=== PATIENT | female | born 1990 | race Hispanic/Latino ===

== ENCOUNTER 2018-10-01 01:02 | Emergency (ER) | payer OTHER, SELFPAY ==
--- NOTE | 2018-10-01 01:34 | ER ---
Nurse's Notes [facility] Name: Juni Healy Age: 28 yrs Sex: Female : 1990 Arrival Date: 10/01/2018 Time: 01:06 Bed 6 Private MD: Diagnosis: Laceration without foreign body of other part of head Presentation: 10/01 01:19 Presenting complaint: Patient states: she hit her head and has a small laceration which bb is not bleeding now pt denies LOC. Transition of care: patient was not received from another setting of care. Mechanism of Injury: resulted from a direct blow, furniture. Onset of symptoms was October 01, 2018. Risk Assessment: Do you want to hurt yourself or someone else? Patient reports no desire to harm self or others. Initial Sepsis Screen: Does the patient meet any 2 criteria? No. Patient's initial sepsis screen is negative. Does the patient have a suspected source of infection? No. Patient's initial sepsis screen is negative. Care prior to arrival: None. 01:19 Method Of Arrival: Ambulatory bb 01:19 Acuity: JANE 4 bb Triage Assessment: 01:21 General: Appears in no apparent distress. Behavior is calm, cooperative. Pain: bb Complains of pain in back of head. Neuro: Level of Consciousness is awake, alert, obeys commands, Oriented to person, place, time, situation. Cardiovascular: No deficits noted. Respiratory: Respiratory effort is even, unlabored, Respiratory pattern is regular. GI: No deficits noted. Derm: Wound noted back of head Wound is laceration. Musculoskeletal: Circulation, motion, and sensation intact. 01:21 Neuro: Reports laceration to scalp. bb CRUSHER: 01:57 LMP N/A - bb Historical: - PMHx: 01:21 Cholecystitis; bb - PSHx: 01:21 ; Cholecystectomy; bb - Immunization history:: Adult Immunizations up to date. - Social history:: Smoking status: unknown. - Ebola Screening: : No symptoms or risks identified at this time. - Family history:: not pertinent. Screenin:30 Abuse screen: Denies threats or abuse. Nutritional screening: No deficits noted. bb Tuberculosis screening: No symptoms or risk factors identified. Fall Risk None identified. Assessment: :30 Reassessment: No changes from previously documented assessment. see triage assessment. bb 01:55 Reassessment: Patient is alert, oriented x 3, equal unlabored respirations, skin bb warm/dry/pink. alli in place wound is well approximated, pt verbalized understanding of and agrees to plan of care discharge instructions given pt ambulated with steady gait to exit accompanied by family. Vital Signs: 01:11 BP 109 / 81; Pulse 125; Resp 24; Temp 98.8; Pulse Ox 96% on R/A; Weight 74.84 kg; ms Height 5 ft. 0 in. (152.40 cm); Pain 6/10; 01:55 BP 109 / 84; Pulse 111; Resp 16; Pulse Ox 98% ; lt1 01:11 Body Mass Index 32.22 (74.84 kg, 152.40 cm) ms [place] Coma Score: 01:19 Eye Response: spontaneous(4). Verbal Response: oriented(5). Motor Response: obeys bb commands(6). Total: 15. 01:27 Eye Response: spontaneous(4). Verbal Response: oriented(5). Motor Response: obeys ayesha commands(6). Total: 15. ED Course: 01:06 Patient arrived in ED. es 01:18 Isabella Galarza, RN is Primary Nurse. bb 01:21 Triage completed. bb 01:23 Lasha Lemos MD is Attending Physician. ayesha 01:30 Patient has correct armband on for positive identification. Call light in reach. bb 01:30 Patient did not have IV access during this emergency room visit. Wound care: located on bb right side of the back of head was cleaned with Betadine. 01:40 Patient notified of wait time. bb 01:40 Assist provider with laceration repair on right side of the back of head that was 2.5 bb cm. or less using alli. Set up tray. Performed by Lasha Lemos MD Patient tolerated well. Administered Medications: 01:49 Drug: Tetanus-Diphtheria Toxoid Adult 0.5 ml {Casino Supervisor: [employer]. Exp: bb 10/08/2020. Lot #: [id number]. } Route: IM; Site: right deltoid; 01:54 Follow up: Response: No adverse reaction bb Outcome: 01:33 Discharge ordered by . ayesha 01:56 Discharged to home ambulatory, with family. bb 01:56 Condition: stable 01:56 Discharge instructions given to patient, Instructed on discharge instructions, follow up and referral plans. wound care, Demonstrated understanding of instructions, follow-up care, wound care. 01:59 Patient left the ED. bb Signatures: Lasha Lemos MD MD cha Salyer, Edna es Ballard, Brenda, CLINT RN Lashell Davila ms Sondra Knight lt1 Corrections: (The following items were deleted from the chart) 01:55 01:54 BP 109 / 84; Pulse 111bpm; Resp 16bpm; Pulse Ox 98%; bb josi 01:59 01:30 No provider procedures requiring assistance completed. josi prater
--- NOTE | 2018-10-01 01:35 | EDPHYS ---
Physician Documentation [facility] Name: Juni Healy Age: 28 yrs Sex: Female : 1990 Arrival Date: 10/01/2018 Time: 01:06 Bed 6 Private MD: ED Physician Lasha Lemos HPI: 10/01 01:27 This 28 yrs old Female presents to ER via Ambulatory with complaints of Head ayesha Injury-Adult. 01:27 The patient or guardian reports a laceration, 2.5 cm(s), clean. The complaints affect ayesha the right side of the back of head. Context of injury: The problem was sustained at home. Onset: The symptoms/episode began/occurred just prior to arrival. Associated signs and symptoms: The patient has no apparent associated signs or symptoms. Severity of symptoms: At their worst the symptoms were mild, in the emergency department the symptoms are unchanged. The patient has not experienced similar symptoms in the past. 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 - Social history:: Smoking status: unknown. - Ebola Screening: : No symptoms or risks identified at this time. - Family history:: not pertinent. ROS: 01:27 Constitutional: Negative for fever, chills, and weight loss, Eyes: Negative for injury, ayesha pain, redness, and discharge, ENT: Negative for injury, pain, and discharge, Neck: Negative for injury, pain, and swelling, Cardiovascular: Negative for chest pain, palpitations, and edema, Respiratory: Negative for shortness of breath, cough, wheezing, and pleuritic chest pain, Abdomen/GI: Negative for abdominal pain, nausea, vomiting, diarrhea, and constipation, Back: Negative for injury and pain, : Negative for injury, bleeding, discharge, and swelling, MS/Extremity: Negative for injury and deformity, Neuro: Negative for headache, weakness, numbness, tingling, and seizure, Psych: Negative for depression, anxiety, suicide ideation, homicidal ideation, and hallucinations, Allergy/Immunology: Negative for hives, rash, and allergies, Endocrine: Negative for neck swelling, polydipsia, polyuria, polyphagia, and marked weight changes, Hematologic/Lymphatic: Negative for swollen nodes, abnormal bleeding, and unusual bruising. 01:27 Skin: Positive for laceration(s). Exam: 01:27 Constitutional: This is a well developed, well nourished patient who is awake, alert, ayesha and in no acute distress. Head/Face: Normocephalic, atraumatic. Eyes: Pupils equal round and reactive to light, extra-ocular motions intact. Lids and lashes normal. Conjunctiva and sclera are non-icteric and not injected. Cornea within normal limits. Periorbital areas with no swelling, redness, or edema. ENT: Nares patent. No nasal discharge, no septal abnormalities noted. Tympanic membranes are normal and external auditory canals are clear. Oropharynx with no redness, swelling, or masses, exudates, or evidence of obstruction, uvula midline. Mucous membranes moist. Neck: Trachea midline, no thyromegaly or masses palpated, and no cervical lymphadenopathy. Supple, full range of motion without nuchal rigidity, or vertebral point tenderness. No Meningismus. Chest/axilla: Normal chest wall appearance and motion. Nontender with no deformity. No lesions are appreciated. Cardiovascular: Regular rate and rhythm with a normal S1 and S2. No gallops, murmurs, or rubs. Normal PMI, no JVD. No pulse deficits. Respiratory: Lungs have equal breath sounds bilaterally, clear to auscultation and percussion. No rales, rhonchi or wheezes noted. No increased work of breathing, no retractions or nasal flaring. Abdomen/GI: Soft, non-tender, with normal bowel sounds. No distension or tympany. No guarding or rebound. No evidence of tenderness throughout. Back: No spinal tenderness. No costovertebral tenderness. Full range of motion. MS/ Extremity: Pulses equal, no cyanosis. Neurovascular intact. Full, normal range of motion. Neuro: Awake and alert, GCS 15, oriented to person, place, time, and situation. Cranial nerves II-XII grossly intact. Motor strength 5/5 in all extremities. Sensory grossly intact. Cerebellar exam normal. Normal gait. Psych: Awake, alert, with orientation to person, place and time. Behavior, mood, and affect are within normal limits. 01:27 Skin: injury, laceration(s), the wound is approximately 2.5 cm(s), with a depth of .25 cm(s), of the right side of the back of head. Vital Signs: 01:11 BP 109 / 81; Pulse 125; Resp 24; Temp 98.8; Pulse Ox 96% on R/A; Weight 74.84 kg; ms Height 5 ft. 0 in. (152.40 cm); Pain 6/10; 01:55 BP 109 / 84; Pulse 111; Resp 16; Pulse Ox 98% ; lt1 01:11 Body Mass Index 32.22 (74.84 kg, 152.40 cm) ms Jose Coma Score: 01:19 Eye Response: spontaneous(4). Verbal Response: oriented(5). Motor Response: obeys commands(6). Total: 15. 01:27 Eye Response: spontaneous(4). Verbal Response: oriented(5). Motor Response: obeys ayesha commands(6). Total: 15. Laceration: 01:27 Wound Repair of 2.5cm ( 1.0in ) subcutaneous laceration to right side of the back of [facility] head. Linear shaped.. Distal neuro/vascular/tendon intact. Anesthesia: none with 0 mls of none. Wound prep: Simple cleansing by me. Skin closed with 3 3 jett [place] using staple gun. Dressed with none. Patient tolerated well. MDM: 01:24 Patient medically screened. [facility] 01:32 Data reviewed: vital signs, nurses notes. [facility] 10/01 01:26 Order name: Wound Care; Complete Time: 01:49 [facility] Administered Medications: 01:49 Drug: Tetanus-Diphtheria Toxoid Adult 0.5 ml {Credit Control Administrator: [employer]. Exp: bb 10/08/2020. Lot #: [id number]. } Route: IM; Site: right deltoid; 01:54 Follow up: Response: No adverse reaction josi Disposition: 10/01/18 01:33 Discharged to Home. Impression: Laceration without foreign body of other part of head. - Condition is Stable. - Discharge Instructions: Laceration Care, Adult, Stitches, Jett, or Adhesive Wound Closure, Laceration Care, Adult, [id number], Stitches, Jett, or Adhesive Wound Closure, [id number]. - Medication Reconciliation Form, Thank You Letter, Antibiotic Education, Prescription Opioid Use, Work release form form. - Follow up: Private Physician; When: 2 - 3 days; Reason: Recheck today's complaints, Continuance of care, Re-evaluation by your physician. - Problem is new. - Symptoms have improved. Signatures: Lasha Lemos MD MD cha Ballard, Brenda RN RN bb Corrections: (The following items were deleted from the chart) 01:59 01:33 10/01/2018 01:33 Discharged to Home. Impression: Laceration without foreign body bb of other part of head. Condition is Stable. Forms are Medication Reconciliation Form, Thank You Letter, Antibiotic Education, Prescription Opioid Use. Follow up: Private Physician; When: 2 - 3 days; Reason: Recheck today's complaints, Continuance of care, Re-evaluation by your physician. Problem is new. Symptoms have improved. ayesha
[2018-10-01] MEDS ORDERED: TETANUS & DIPHTHERIA TOX,ADULT 0.5 ML VIAL ONE (01:54)
[2018-10-01 02:27] VITALS: TEMP 98.8
[2018-10-01 02:28] VITALS: BP 109/84; O2SAT 98
== END 2018-10-01 01:59 | disposition home or self-care (01) ==
LOC: ER 01:02
PROC: 0JQ00ZZ Repair Scalp Subcutaneous Tissue and Fascia, Open Approach (ICD-10-PCS; principal; 2018-10-01)
DX: S01.91XA Laceration without foreign body of unspecified part of head, initial encounter (principal); W19.XXXA Unspecified fall, initial encounter; Y93.9 Activity, unspecified; Y92.009 Unspecified place in unspecified non-institutional (private) residence as the place of occurrence of the external cause; Z23 Encounter for immunization
CPT/HCPCS: 90714; 99283

== ENCOUNTER 2018-10-13 22:11 | Emergency (ER) | payer SELFPAY ==
--- NOTE | 2018-10-13 22:34 | ER ---
Nurse's Notes [facility] Name: Juni Healy Age: 28 yrs Sex: Female : 1990 Arrival Date: 10/13/2018 Time: 22:16 Bed Waiting Private MD: Ron Prescott E Diagnosis: Encounter for removal of sutures Presentation: 10/13 22:25 Presenting complaint: Patient states: she is here to have alli removed from her bb scalp which were placed here last Wednesday. Transition of care: patient was not received from another setting of care. Onset of symptoms was October 13, 2018. Risk Assessment: Do you want to hurt yourself or someone else? Patient reports no desire to harm self or others. Initial Sepsis Screen: Does the patient meet any 2 criteria? No. Patient's initial sepsis screen is negative. Does the patient have a suspected source of infection? No. Patient's initial sepsis screen is negative. Care prior to arrival: None. 22:25 Method Of Arrival: Ambulatory bb 22:25 Acuity: JANE 5 bb Triage Assessment: 22:26 General: Appears in no apparent distress. Behavior is calm, cooperative. Pain: Denies bb pain. Neuro: Level of Consciousness is awake, alert, obeys commands, Oriented to person, place, time, situation. Cardiovascular: No deficits noted. Respiratory: Respiratory effort is even, unlabored. Derm: alli to scalp intact wound is well approximated, well healed. Musculoskeletal: Circulation, motion, and sensation intact. 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 - Social history:: Smoking status: Patient/guardian denies using tobacco. - Ebola Screening: : No symptoms or risks identified at this time. Screenin:32 Abuse screen: Denies threats or abuse. Nutritional screening: No deficits noted. bb Tuberculosis screening: No symptoms or risk factors identified. Fall Risk None identified. Assessment: 22:32 Reassessment: Arturo Mcneil INSTRUMENT PANEL ASSEMBLER in triage for pt evaluation alli removed by this RN pt bb tolerated well. Vital Signs: 22:26 BP 107 / 77; Pulse 88; Resp 16 S; Temp 98.1(O); Pulse Ox 97% on R/A; Weight 79.83 kg bb (R); Height 5 ft. 5 in. (165.10 cm) (R); Pain 0/10; 22:26 Body Mass Index 29.29 (79.83 kg, 165.10 cm) bb ED Course: 22:16 Patient arrived in ED. am2 22:16 Clifford Santos MD is Private Physician. am2 22:16 Ron Prescott MD is Private Physician. am2 22:26 Triage completed. bb 22:26 Arm band placed on. bb 22:30 Ovidio Mcneil NP is PHCP. pm1 22:30 Lasha Lemos MD is Attending Physician. pm1 22:32 Patient has correct armband on for positive identification. bb 22:32 No provider procedures requiring assistance completed. Patient did not have IV access bb during this emergency room visit. Administered Medications: No medications were administered Outcome: 22:33 Discharge ordered by . pm1 22:36 Discharged to home ambulatory. bb 22:36 Condition: stable 22:36 Discharge instructions given to patient, Instructed on discharge instructions, follow up and referral plans. Demonstrated understanding of instructions, follow-up care. 22:36 Patient left the ED. bb Signatures: Isabella Galarza RN RN bb Ovidio Mcneil NP INSTRUMENT PANEL ASSEMBLER pm1 Stacy [place] am2
--- NOTE | 2018-10-13 22:34 | EDPHYS ---
Physician Documentation [facility] Name: Juni Healy Age: 28 yrs Sex: Female : 1990 Arrival Date: 10/13/2018 Time: 22:16 Bed Waiting Private MD: Ron Prescott E ED Physician Lasha Lemos HPI: 10/13 22:30 This 28 yrs old Female presents to ER via Ambulatory with complaints of Staple pm1 Removal. 22:30 The patient has alli on the scalp. Previous treatment: The patient was initially pm1 treated on October 01, 2018, the care was rendered at [facility], Treatment type: The patient's original treatment included alli. Sutures/alli progress: The patient has no c/o's. The wound is well-healing with no redness, swelling, discharge, or dehiscence reported. The patient has not experienced similar symptoms in the past. 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 - Social history:: Smoking status: Patient/guardian denies using tobacco. - Ebola Screening: : No symptoms or risks identified at this time. ROS: 22:30 Constitutional: Negative for fever, chills, and weight loss, Eyes: Negative for injury, pm1 pain, redness, and discharge, ENT: Negative for injury, pain, and discharge, Neck: Negative for injury, pain, and swelling, Cardiovascular: Negative for chest pain, palpitations, and edema, Respiratory: Negative for shortness of breath, cough, wheezing, and pleuritic chest pain, Abdomen/GI: Negative for abdominal pain, nausea, vomiting, diarrhea, and constipation, Back: Negative for injury and pain, MS/Extremity: Negative for injury and deformity, Skin: Negative for injury, rash, and discoloration, Neuro: Negative for headache, weakness, numbness, tingling, and seizure. Exam: 22:30 Constitutional: This is a well developed, well nourished patient who is awake, alert, pm1 and in no acute distress. Head/Face: Normocephalic, atraumatic. Eyes: Pupils equal round and reactive to light, extra-ocular motions intact. Lids and lashes normal. Conjunctiva and sclera are non-icteric and not injected. Cornea within normal limits. Periorbital areas with no swelling, redness, or edema. ENT: Nares patent. No nasal discharge, no septal abnormalities noted. Tympanic membranes are normal and external auditory canals are clear. Oropharynx with no redness, swelling, or masses, exudates, or evidence of obstruction, uvula midline. Mucous membranes moist. Neck: Trachea midline, no thyromegaly or masses palpated, and no cervical lymphadenopathy. Supple, full range of motion without nuchal rigidity, or vertebral point tenderness. No Meningismus. Chest/axilla: Normal chest wall appearance and motion. Nontender with no deformity. No lesions are appreciated. Cardiovascular: Regular rate and rhythm with a normal S1 and S2. No gallops, murmurs, or rubs. No pulse deficits. Respiratory: Lungs have equal breath sounds bilaterally, clear to auscultation and percussion. No rales, rhonchi or wheezes noted. No increased work of breathing, no retractions or nasal flaring. Back: No spinal tenderness. No costovertebral tenderness. Full range of motion. 22:30 Skin: Wound recheck: Staple laceration closure: the wound is healing well, the edges are well approximated, no evidence of dehiscence, no drainage, no erythema, no swelling. Vital Signs: 22:26 BP 107 / 77; Pulse 88; Resp 16 S; Temp 98.1(O); Pulse Ox 97% on R/A; Weight 79.83 kg bb (R); Height 5 ft. 5 in. (165.10 cm) (R); Pain 0/10; 22:26 Body Mass Index 29.29 (79.83 kg, 165.10 cm) bb Procedures: 22:32 Suture/Staple removal: Removed 5 alli, from scalp, site appears well healed, Patient pm1 tolerated well. MDM: 22:32 Data reviewed: vital signs. Data interpreted: Pulse oximetry: on room air is 97 %. pm1 Interpretation: normal. Counseling: I had a detailed discussion with the patient and/or guardian regarding: the historical points, exam findings, and any diagnostic results supporting the discharge/admit diagnosis, the need for outpatient follow up, to return to the emergency department if symptoms worsen or persist or if there are any questions or concerns that arise at home. 22:33 Patient medically screened. pm1 Administered Medications: No medications were administered Disposition: 10/13/18 22:33 Discharged to Home. Impression: Encounter for removal of sutures. - Condition is Stable. - Discharge Instructions: Suture Removal, Care After. - Medication Reconciliation Form, Thank You Letter form. - Follow up: Emergency Department; When: As needed; Reason: Worsening of condition. Follow up: Private Physician; When: As needed; Reason: Wound Recheck, Recheck today's complaints, Continuance of care, Re-evaluation by your physician. - Problem is new. - Symptoms have improved. Addendum: 10/17/2018 07:04 Co-signature as Attending Physician, Lasha Lemos MD I agree with the assessment and c genao plan of care. Signatures: Lasha Lemos MD MD cha Ballard, Brenda, RN RN bb Ovidio Mcneil NP ECHOCARDIOGRAPHY TECHNOLOGIST pm1 Corrections: (The following items were deleted from the chart) 10/13 22:36 22:33 10/13/2018 22:33 Discharged to Home. Impression: Encounter for removal of bb sutures. Condition is Stable. Forms are Medication Reconciliation Form, Thank You Letter, Antibiotic Education, Prescription Opioid Use. Follow up: Emergency Department; When: As needed; Reason: Worsening of condition. Follow up: Private Physician; When: As needed; Reason: Wound Recheck, Recheck today's complaints, Continuance of care, Re-evaluation by your physician. Problem is new. Symptoms have improved. pm1
[2018-10-13 22:50] VITALS: BP 107/77; TEMP 98.1; O2SAT 97
== END 2018-10-13 22:36 | disposition home or self-care (01) ==
LOC: ER 22:11
DX: Z48.02 Encounter for removal of sutures (principal)
CPT/HCPCS: 99281

== ENCOUNTER 2019-08-20 12:56 | Emergency (ER) | payer SELFPAY ==
--- NOTE | 2019-08-20 14:19 | EDPHYS ---
Physician Documentation [facility] Name: Juni Healy Age: 29 yrs Sex: Female : 1990 Arrival Date: 08/20/2019 Time: 12:56 Bed 9 Private MD: ED Physician Garth Clayton HPI: 08/20 14:20 This 29 yrs old Female presents to ER via Ambulatory with complaints of Fever, kb Cough, Diarrhea. 14:20 The patient or guardian reports cough, that is intermittent, described as mild, with no kb sputum, flu symptoms, low-grade fever, myalgias, no appetite. Onset: The symptoms/episode began/occurred 1.5 week(s) ago. Severity of symptoms: At their worst the symptoms were moderate, in the emergency department the symptoms are unchanged. Modifying factors: The symptoms are alleviated by nothing, the symptoms are aggravated by nothing. Associated signs and symptoms: Pertinent positives: fever, rhinorrhea, sore throat. The patient has not experienced similar symptoms in the past. The patient has not recently seen a physician. Pt report fever, cough, congestion and body aches for a week and a half. States it went away for a couple of days and returned 4 days ago. 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 - Social history:: Smoking status: Patient uses tobacco products, smokes one-half pack cigarettes per day. - Ebola Screening: : Patient denies travel to an Ebola-affected area in the 21 days before illness onset. ROS: 14:19 Neck: Negative for injury, pain, and swelling, Cardiovascular: Negative for chest pain, kb palpitations, and edema, Abdomen/GI: Negative for abdominal pain, nausea, vomiting, diarrhea, and constipation, Back: Negative for injury and pain, : Negative for injury, bleeding, discharge, and swelling, MS/Extremity: Negative for injury and deformity, Skin: Negative for injury, rash, and discoloration, Neuro: Negative for headache, weakness, numbness, tingling, and seizure. 14:19 Constitutional: Positive for body aches, chills, fatigue, fever, malaise, poor PO intake. 14:19 ENT: Positive for rhinorrhea, sinus congestion. 14:19 Respiratory: Positive for cough, Negative for dyspnea on exertion, hemoptysis, orthopnea, pleurisy, shortness of breath, sputum production, wheezing. Exam: 14:19 Constitutional: This is a well developed, well nourished patient who is awake, alert, kb and in no acute distress. Head/Face: Normocephalic, atraumatic. ENT: Nares patent. No nasal discharge, no septal abnormalities noted. Tympanic membranes are normal and external auditory canals are clear. Oropharynx with no redness, swelling, or masses, exudates, or evidence of obstruction, uvula midline. Mucous membranes moist. Neck: Trachea midline, no thyromegaly or masses palpated, and no cervical lymphadenopathy. Supple, full range of motion without nuchal rigidity, or vertebral point tenderness. No Meningismus. Chest/axilla: Normal chest wall appearance and motion. Nontender with no deformity. No lesions are appreciated. Cardiovascular: Regular rate and rhythm with a normal S1 and S2. No gallops, murmurs, or rubs. Normal PMI, no JVD. No pulse deficits. Respiratory: Lungs have equal breath sounds bilaterally, clear to auscultation and percussion. No rales, rhonchi or wheezes noted. No increased work of breathing, no retractions or nasal flaring. Abdomen/GI: Soft, non-tender, with normal bowel sounds. No distension or tympany. No guarding or rebound. No evidence of tenderness throughout. Back: No spinal tenderness. No costovertebral tenderness. Full range of motion. Skin: Warm, dry with normal turgor. Normal color with no rashes, no lesions, and no evidence of cellulitis. MS/ Extremity: Pulses equal, no cyanosis. Neurovascular intact. Full, normal range of motion. Neuro: Awake and alert, GCS 15, oriented to person, place, time, and situation. Cranial nerves II-XII grossly intact. Motor strength 5/5 in all extremities. Sensory grossly intact. Cerebellar exam normal. Normal gait. Vital Signs: 13:17 BP 109 / 76; Pulse 96; Resp 18; Temp 98.1; Pulse Ox 98% on R/A; Weight 72.57 kg (R); aj1 Height 5 ft. 0 in. (152.40 cm) (R); 13:17 Body Mass Index 31.25 (72.57 kg, 152.40 cm) aj1 MDM: 13:23 Patient medically screened. kb 14:18 Data reviewed: vital signs, nurses notes. Data interpreted: Pulse oximetry: on room air kb is 98 %. Interpretation: normal. Counseling: I had a detailed discussion with the patient and/or guardian regarding: the historical points, exam findings, and any diagnostic results supporting the discharge/admit diagnosis, lab results, the need for outpatient follow up, a family practitioner, to return to the emergency department if symptoms worsen or persist or if there are any questions or concerns that arise at home. 08/20 13:34 Order name: Flu; Complete Time: 14:13 kb 08/20 13:48 Order name: Strep; Complete Time: 14:12 kb 08/20 14:13 Order name: Throat Culture EDMS Administered Medications: No medications were administered Disposition: 17:48 Co-signature as Attending Physician, Garth Clayton MD Did not see or evaluate the ps1 patient. Signing the chart for administrative purposes. Not an endorsement of care provided. . Disposition: 08/20/19 14:18 Discharged to Home. Impression: Acute upper respiratory infection, unspecified. - Condition is Stable. - Discharge Instructions: Upper Respiratory Infection, Adult, [id number]. - Medication Reconciliation Form, Thank You Letter, Antibiotic Education, Prescription Opioid Use form. - Follow up: Emergency Department; When: As needed; Reason: Worsening of condition. Follow up: Private Physician; When: 2 - 3 days; Reason: Recheck today's complaints, Continuance of care, Re-evaluation by your physician. Signatures: Dispatcher [employer] EDMS Tish Bull FNP-C FNP-Carleen Raygoza RN RN aj1 Tere Cash, Garth Cruz RN, MD MD ps1 Corrections: (The following items were deleted from the chart) 14:37 14:18 08/20/2019 14:18 Discharged to Home. Impression: Acute upper respiratory hb infection, unspecified. Condition is Stable. Forms are Medication Reconciliation Form, Thank You Letter, Antibiotic Education, Prescription Opioid Use. Follow up: Emergency Department; When: As needed; Reason: Worsening of condition. Follow up: Private Physician; When: 2 - 3 days; Reason: Recheck today's complaints, Continuance of care, Re-evaluation by your physician. kb
--- NOTE | 2019-08-20 14:19 | ER ---
Nurse's Notes [facility] Name: Juni Healy Age: 29 yrs Sex: Female : 1990 Arrival Date: 08/20/2019 Time: 12:56 Bed 9 Private MD: Diagnosis: Acute upper respiratory infection, unspecified Presentation: 08/20 13:13 Presenting complaint: Patient states: Fever, cough, chills, headache, and diarrhea aj1 since last week. TMax 103. Transition of care: patient was not received from another setting of care. Onset of symptoms was 2018. Risk Assessment: Do you want to hurt yourself or someone else? Patient reports no desire to harm self or others. Initial Sepsis Screen: Does the patient meet any 2 criteria? HR > 90 bpm. No. Patient's initial sepsis screen is negative. Does the patient have a suspected source of infection? No. Patient's initial sepsis screen is negative. Care prior to arrival: None. 13:13 Method Of Arrival: Ambulatory aj1 13:13 Acuity: JANE 4 aj1 Triage Assessment: 13:17 General: Appears in no apparent distress. comfortable, Behavior is calm, cooperative, aj1 appropriate for age. Pain:. Pain: Complains of pain in face, back, abdomen, right leg and left leg Pain currently is 8 out of 10 on a pain scale. Neuro: Level of Consciousness is awake, alert, obeys commands. Cardiovascular: Patient's skin is warm and dry. Respiratory: Airway is patent Respiratory effort is even, unlabored, Respiratory pattern is regular, symmetrical. GI: Reports diarrhea. 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 - Social history:: Smoking status: Patient uses tobacco products, smokes one-half pack cigarettes per day. - Ebola Screening: : Patient denies travel to an Ebola-affected area in the 21 days before illness onset. Screenin:44 Abuse screen: Denies threats or abuse. Denies injuries from another. Nutritional hb screening: No deficits noted. Tuberculosis screening: No symptoms or risk factors identified. Fall Risk None identified. Assessment: 13:43 General: Appears in no apparent distress. Behavior is calm, cooperative. Pain: Pain hb currently is 2 out of 10 on a pain scale. Neuro: Level of Consciousness is awake, alert, obeys commands, Oriented to person, place, time, situation. Cardiovascular: Capillary refill < 3 seconds Patient's skin is warm and dry. Respiratory: Reports cough that is non-productive, Airway is patent Respiratory effort is even, unlabored, Respiratory pattern is regular, symmetrical, Breath sounds are clear bilaterally. GI: Reports diarrhea, nausea. : No signs and/or symptoms were reported regarding the genitourinary system. EENT: No signs and/or symptoms were reported regarding the EENT system. Derm: Skin is pink, warm \T\ dry. Musculoskeletal: Reports body aches. 14:30 Reassessment: Patient appears in no apparent distress at this time. Patient and/or hb family updated on plan of care and expected duration. Pain level reassessed. Patient is alert, oriented x 3, equal unlabored respirations, skin warm/dry/pink. Vital Signs: 13:17 BP 109 / 76; Pulse 96; Resp 18; Temp 98.1; Pulse Ox 98% on R/A; Weight 72.57 kg (R); aj1 Height 5 ft. 0 in. (152.40 cm) (R); 13:17 Body Mass Index 31.25 (72.57 kg, 152.40 cm) aj1 ED Course: 12:56 Patient arrived in ED. as 13:16 Tish Bull FNP-C is [facility]. kb 13:16 Garth Clayton MD is Attending Physician. kb 13:16 Triage completed. aj1 13:17 Arm band placed on Patient placed in waiting room, Patient notified of wait time. aj1 13:38 Tere Cash, RN is Primary Nurse. hb 13:42 Flu Sent. hb 13:44 Patient has correct armband on for positive identification. Call light in reach. hb 14:00 Flu Sent. hb 14:00 Strep Sent. hb 14:35 No provider procedures requiring assistance completed. Patient did not have IV access hb during this emergency room visit. Administered Medications: No medications were administered Outcome: 14:18 Discharge ordered by . kb 14:35 Discharged to home ambulatory, with family. hb 14:35 Condition: stable 14:35 Discharge instructions given to patient, family, Instructed on discharge instructions, follow up and referral plans. medication usage, Demonstrated understanding of instructions, follow-up care, medications. 14:37 Patient left the ED. hb Signatures: Tish Bull, WHEEL MILL OPERATOR-C GÉNESIS-Carleen Raygoza RN RN aj1 Maryann Rosado as Tere Cash, RN RN hb
[2019-08-20 14:57] VITALS: BP 109/76; TEMP 98.1; O2SAT 98
== END 2019-08-20 14:37 | disposition home or self-care (01) ==
LOC: ER 12:56
DX: J06.9 Acute upper respiratory infection, unspecified (principal); F17.210 Nicotine dependence, cigarettes, uncomplicated
CPT/HCPCS: 87070; 87081; 87804; 99283

== ENCOUNTER 2021-01-19 05:33 | Emergency (ER) | payer SELFPAY ==
[2021-01-19 06:00] LABS: Urine Blood 1+ (Negative); Urine Glucose Negative (Negative); Urine Protein Trace (Negative); Urine Specific Gravity >=1.030 (1.005-1.030)
[2021-01-19 06:22] LABS: Absolute Lymphocytes (CBC) 4.5 K/uL (0.7-4.9); Basophils % 0.6 % (0-1.3); Hematocrit 43.9 % (36.0-45.0); Lymphocytes % 45.4 % (15.3-44.8); MPV 9.4 fL (7.6-11.3); RBC Red Blood Cell Count 4.75 M/uL (3.86-4.86)
[2021-01-19] MEDS ORDERED: NA CHLORIDE 0.9% 1,000 ML ONE (06:26)
[2021-01-19 06:30] LABS: Protime INR 0.89
[2021-01-19 06:38] LABS: Barbiturates NEGATIVE (NEGATIVE); Benzodiazepines NEGATIVE (NEGATIVE); Cocaine NEGATIVE (NEGATIVE); METHAMPHETAM NEGATIVE (NEGATIVE); Methadone NEGATIVE (NEGATIVE); Opiates NEGATIVE (NEGATIVE); Phencyclidine NEGATIVE (NEGATIVE); THC Cannibis NEGATIVE (NEGATIVE)
[2021-01-19 06:52] LABS: ALT/SGPT 25 U/L (12-78); Albumin 4.1 g/dL (3.4-5.0); Alkaline Phosphatase 70 U/L (45-117); BUN Blood Urea Nitrogen 12 mg/dL (7-18); Bicarbonate 27 mmol/L (21-32); Bilirubin Direct < 0.1 mg/dL (0-0.2); Bilirubin Total 0.2 mg/dL (0.2-1.0); Glucose Level 106 mg/dL (74-106); NT PRO-BNP 13 pg/mL (<125); Protein, Total 8.3 g/dL (6.4-8.2); Sodium Level 143 mmol/L (136-145); Troponin (Emerg Dept Use Only) < 0.02 ng/mL (0.0-0.045)
[2021-01-19 06:59] LABS: AST/SGOT 14 U/L (15-37); Magnesium 2.1 mg/dL (1.8-2.4); Potassium 3.8 mmol/L (3.5-5.1)
[2021-01-19 08:30] LABS: Urine Specific Gravity/Preg >1.030 (1.005-1.030)
--- NOTE | 2021-01-19 08:30 | ER ---
Nurse's Notes [facility] Name: Juni Healy Age: 30 yrs Sex: Female : 1990 Arrival Date: 01/19/2021 Time: 05:37 Bed 13 Private MD: Diagnosis: Dehydration Presentation: 01/19 05:52 Chief complaint: Patient states: PATIENT HAVING SOME CHEST PAIN, ON AND OFF FOR A FEW rv DAYS NOW, NO KNOWN MEDICAL CONDITION, PATIENT FEELS LIKE HER SUGAR IS OFF, FEELS DIZZY, AND WEAK. Coronavirus screen: Client denies travel out of the [place] in the last 14 days. Ebola Screen: No symptoms or risks identified at this time. Initial Sepsis Screen: Does the patient meet any 2 criteria? No. Patient's initial sepsis screen is negative. Does the patient have a suspected source of infection? No. Patient's initial sepsis screen is negative. Risk Assessment: Do you want to hurt yourself or someone else? Patient reports no desire to harm self or others. Onset of symptoms was January 19, 2021. 05:52 Method Of Arrival: Ambulatory 05:52 Acuity: JANE 3 rv Triage Assessment: 05:54 General: Appears comfortable, Behavior is calm, cooperative. Pain: Complains of pain in rv chest Pain does not radiate. Pain currently is 4 out of 10 on a pain scale. Quality of pain is described as stabbing. Neuro: Level of Consciousness is awake, alert, obeys commands, Oriented to person, place, time, situation, Reports blurred vision dizziness, weakness. Cardiovascular: Reports chest pain, palpitations, Patient's skin is warm and dry. Rhythm is sinus tachycardia. Respiratory: Airway is patent Respiratory effort is even, unlabored, Breath sounds are clear bilaterally. Derm: Skin is intact. 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 - Social history:: Smoking status: Patient denies any tobacco usage or history of. Screenin:54 Abuse screen: Denies threats or abuse. Denies injuries from another. Nutritional rr5 screening: No deficits noted. Tuberculosis screening: No symptoms or risk factors identified. Fall Risk IV access (20 points). Total Santos Fall Scale indicates No Risk (0-24 pts). Assessment: 06:29 Reassessment: Patient appears in no apparent distress at this time. Patient is alert, rr5 oriented x 3, equal unlabored respirations, skin warm/dry/pink. awaiting for results. Vital Signs: 05:52 BP 121 / 78; Pulse 128; Resp 17; Temp 97.8; Pulse Ox 98% on R/A; Weight 72.57 kg; rv Height 5 ft. (152.40 cm); Pain 4/10; 06:29 BP 113 / 78; Pulse 106; Resp 19; Pulse Ox 98% ; rr5 07:30 BP 113 / 75; Pulse 103; Resp 18; Pulse Ox 100% ; kg 08:27 BP 114 / 80; Pulse 100; Resp 18; Pulse Ox 100% on R/A; kg 05:52 Body Mass Index 31.25 (72.57 kg, 152.40 cm) rv ED Course: 05:37 Patient arrived in ED. bp1 05:47 Iggy Perez, CLINT is Primary Nurse. rr5 05:50 Inserted saline lock: 20 gauge in left forearm, using aseptic technique. Blood rr5 collected. 05:50 EKG done, by ED staff, reviewed by Srinivasa Jang MD. rr5 05:53 Triage completed. rv 05:54 Patient has correct armband on for positive identification. Placed in gown. Bed in low rr5 position. Call light in reach. campus monitor on. Pulse ox on. NIBP on. 05:55 Initial lab(s) drawn, by ED staff, sent to lab. rv 05:55 Arm band placed on right wrist. Patient placed in the treatment room, on a stretcher, rv Patient notified of wait time. 06:09 Srinivasa Jang MD is Attending Physician. mh7 06:39 XRAY Chest (1 view) In Process Unspecified. EDMS 08:27 No provider procedures requiring assistance completed. IV discontinued, intact, kg bleeding controlled, No redness/swelling at site. Pressure dressing applied. Administered Medications: 06:14 Drug: NS 0.9% 1000 ml Route: IV; Rate: 1000 ml; Site: left antecubital; rv 07:14 Follow up: Response: No adverse reaction kg 07:30 Follow up: IV Status: Completed infusion kg 09:04 Follow up: Response: No adverse reaction kg Outcome: 08:28 Condition: good kg 08:29 Discharge ordered by . liliana 09:03 Discharged to home ambulatory. kg 09:03 Discharge instructions given to patient, Instructed on discharge instructions, follow up and referral plans. Demonstrated understanding of instructions, follow-up care. 09:04 Patient left the ED. kg Signatures: Dispatcher [employer] EDMS Felicita Canas MD MD ma2 Salvador Gutierrez RN RN rv Iggy Perez RN RN rr5 Breonna Das Maurice, MD MD 7 Johana Green kg
--- NOTE | 2021-01-19 08:30 | EDPHYS ---
Physician Documentation [facility] [place], [place] Name: Juni Healy Age: 30 yrs Sex: Female : 1990 Arrival Date: 01/19/2021 Time: 05:37 Bed 13 Private MD: ED Physician Srinivasa Jang HPI: 01/19 06:39 This 30 yrs old Female presents to ER via Ambulatory with complaints of mh7 Doesn't Feel Right. 06:39 The patient presents with a history of heart racing. Context: The symptoms occur at mh7 rest. Onset: The symptoms/episode began/occurred today. Duration: The patient or guardian reports a single episode, that is still ongoing. Modifying factors: The symptoms are aggravated by nothing. The symptoms are alleviated by nothing. Associated signs and symptoms: Pertinent positives: chest pain, nausea, vertigo, Dizziness for one week, Pertinent negatives: anxiety, cough, fever, SOB, syncope, near-syncope, unusual stressors, vomiting. Severity of symptoms: At their worst the symptoms were moderate today, in the emergency department the symptoms have improved mildly. 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 - Social history:: Smoking status: Patient denies any tobacco usage or history of. ROS: 06:39 Constitutional: Negative for fever, chills, and weight loss, Eyes: Negative for injury, mh7 pain, redness, and discharge, ENT: Negative for injury, pain, and discharge, Neck: Negative for injury, pain, and swelling, Respiratory: Negative for shortness of breath, cough, wheezing, and pleuritic chest pain, Back: Negative for injury and pain, : Negative for injury, bleeding, discharge, and swelling, MS/Extremity: Negative for injury and deformity, Skin: Negative for injury, rash, and discoloration, Neuro: Negative for headache, weakness, numbness, tingling, and seizure, Psych: Negative for depression, anxiety, suicide ideation, homicidal ideation, and hallucinations, Allergy/Immunology: Negative for hives, rash, and allergies, Endocrine: Negative for neck swelling, polydipsia, polyuria, polyphagia, and marked weight changes, Hematologic/Lymphatic: Negative for swollen nodes, abnormal bleeding, and unusual bruising. Exam: 06:39 Constitutional: This is a well developed, well nourished patient who is awake, alert, mh7 and in no acute distress. Head/Face: Normocephalic, atraumatic. Eyes: Pupils equal round and reactive to light, extra-ocular motions intact. Lids and lashes normal. Conjunctiva and sclera are non-icteric and not injected. Cornea within normal limits. Periorbital areas with no swelling, redness, or edema. Neck: Trachea midline, no thyromegaly or masses palpated, and no cervical lymphadenopathy. Supple, full range of motion without nuchal rigidity, or vertebral point tenderness. No Meningismus. Chest/axilla: Normal chest wall appearance and motion. Nontender with no deformity. No lesions are appreciated. 06:39 Respiratory: Lungs have equal breath sounds bilaterally, clear to auscultation and percussion. No rales, rhonchi or wheezes noted. No increased work of breathing, no retractions or nasal flaring. Abdomen/GI: Soft, non-tender, with normal bowel sounds. No distension or tympany. No guarding or rebound. No evidence of tenderness throughout. Back: No spinal tenderness. No costovertebral tenderness. Full range of motion. Skin: Warm, dry with normal turgor. Normal color with no rashes, no lesions, and no evidence of cellulitis. MS/ Extremity: Pulses equal, no cyanosis. Neurovascular intact. Full, normal range of motion. Neuro: Awake and alert, GCS 15, oriented to person, place, time, and situation. Cranial nerves II-XII grossly intact. Motor strength 5/5 in all extremities. Sensory grossly intact. Cerebellar exam normal. Normal gait. Psych: Awake, alert, with orientation to person, place and time. Behavior, mood, and affect are within normal limits. 06:39 Cardiovascular: Rate: tachycardic, Rhythm: regular, Pulses: no pulse deficits are appreciated, Heart sounds: normal, normal S1and S2, Edema: is not appreciated, JVD: is not appreciated. Vital Signs: 05:52 BP 121 / 78; Pulse 128; Resp 17; Temp 97.8; Pulse Ox 98% on R/A; Weight 72.57 kg; rv Height 5 ft. (152.40 cm); Pain 4/10; 06:29 BP 113 / 78; Pulse 106; Resp 19; Pulse Ox 98% ; rr5 07:30 BP 113 / 75; Pulse 103; Resp 18; Pulse Ox 100% ; kg 08:27 BP 114 / 80; Pulse 100; Resp 18; Pulse Ox 100% on R/A; kg 05:52 Body Mass Index 31.25 (72.57 kg, 152.40 cm) rv MDM: 07:01 Transition of care: After a detail discussion of the patient's case, care is mh7 transferred to Felicita Canas MD. 08:29 Patient medically screened. ma2 08:29 Data reviewed: vital signs, nurses notes. Counseling: I had a detailed discussion with ma2 the patient and/or guardian regarding: the historical points, exam findings, and any diagnostic results supporting the discharge/admit diagnosis, the presence of at least one elevated blood pressure reading (>120/80) during this emergency department visit, the need for outpatient follow up. Response to treatment: the patient's symptoms have markedly improved after treatment. 01/19 05:47 Order name: Basic Metabolic Panel rr5 01/19 05:47 Order name: CBC with Diff rr5 01/19 05:47 Order name: LFT's rr5 01/19 05:47 Order name: Magnesium; Complete Time: 07:07 rr5 01/19 05:47 Order name: NT PRO-BNP; Complete Time: 07:07 rr5 01/19 05:47 Order name: PT-INR; Complete Time: 07:07 rr5 01/19 05:47 Order name: Troponin (emerg Dept Use Only); Complete Time: 07:07 rr5 01/19 05:47 Order name: Basic Metabolic Panel; Complete Time: 07:07 EDMS 01/19 05:47 Order name: CBC with Automated Diff; Complete Time: 07:07 EDMS 01/19 05:47 Order name: Liver (Hepatic) Function; Complete Time: 07:07 EDMS 01/19 06:01 Order name: Urine --Ancillary (enter results) tt3 01/19 06:01 Order name: Urine Dipstick-Ancillary; Complete Time: 06:13 EDMS 01/19 06:14 Order name: ETOH Level; Complete Time: 07:07 7 01/19 06:14 Order name: UDS; Complete Time: 07:07 7 01/19 05:47 Order name: XRAY Chest (1 view) 5 01/19 05:47 Order name: EKG; Complete Time: 05:48 rr5 01/19 05:47 Order name: Cardiac monitoring; Complete Time: 05:53 rr5 01/19 05:47 Order name: EKG - Nurse/Tech; Complete Time: 05:53 rr5 01/19 05:47 Order name: IV Saline Lock; Complete Time: 05:53 rr5 01/19 05:47 Order name: Labs collected and sent; Complete Time: 05:53 rr5 01/19 05:47 Order name: O2 Per Protocol; Complete Time: 05:53 rr5 01/19 05:47 Order name: O2 Sat Monitoring; Complete Time: 05:53 5 01/19 05:59 Order name: Urine Dipstick-Ancillary (obtain specimen); Complete Time: 05:59 rr5 01/19 05:59 Order name: Urine Test (obtain specimen); Complete Time: 05:59 rr5 Administered Medications: 06:14 Drug: NS 0.9% 1000 ml Route: IV; Rate: 1000 ml; Site: left antecubital; rv 07:14 Follow up: Response: No adverse reaction kg 07:30 Follow up: IV Status: Completed infusion kg 09:04 Follow up: Response: No adverse reaction kg Disposition: 01/19/21 08:29 Discharged to Home. Impression: Dehydration. - Condition is Stable. - Discharge Instructions: Dehydration, Adult. - Medication Reconciliation Form, Thank You Letter, Antibiotic Education, Prescription Opioid Use, Work release form form. - Follow up: Private Physician; When: Tomorrow; Reason: Continuance of care. Signatures: Dispatcher [employer] EDMS Harley Tucker, CUSTOMER EXPERIENCE LEADER-C CUSTOMER EXPERIENCE LEADER-Cla1 Felicita Canas MD MD ma2 Salvador Gutierrez RN RN rv Iggy Perez RN RN rr5 Srinivasa Jang MD MD 7 Johana Green kg Corrections: (The following items were deleted from the chart) 09:04 08:29 01/19/2021 08:29 Discharged to Home. Impression: Dehydration. Condition is kg Stable. Forms are Medication Reconciliation Form, Thank You Letter, Antibiotic Education, Prescription Opioid Use. Follow up: Private Physician; When: Tomorrow; Reason: Continuance of care. ma2
[2021-01-19 09:09] VITALS: TEMP 97.8
[2021-01-19 09:17] VITALS: BP 114/80; O2SAT 100
--- NOTE | 2021-01-19 11:11 | RAD REPORT ---
EXAM DESCRIPTION: RAD - Chest Single View - 01/19/2021 6:38 am CLINICAL HISTORY: CHEST PAIN Chest pain. COMPARISON: No comparisons FINDINGS: Portable technique limits examination quality. The lungs are grossly clear. The heart is normal in size. No displaced fractures. IMPRESSION: No acute intrathoracic process suspected.
--- NOTE | 2021-01-20 09:20 | EKG ---
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
== END 2021-01-19 09:04 | disposition home or self-care (01) ==
LOC: ER 05:33
DX: E86.0 Dehydration (principal)
CPT/HCPCS: 36415; 71045; 80048; 80076; 80307; 80320; 81003; 81025; 83735; 83880; 84484; 85025; 85610; 93005; 96360; 99284; J7030

== ENCOUNTER 2022-01-09 09:14 | Emergency (ER) | payer OTHER ==
--- OUTSIDE RECORDS SUMMARY | 2022-01-09 09:36 | XMS REPORT | Continuity of Care Document ---
:1990 Author Organization [facility] t Address [address] [place] [address] Care Team Providers Name Role Phone Sha Tim MD Primary Care Physician SHA TIM Attending Clinician Unavailable LAB90 Attending Clinician Unavailable Sha Tim MD Attending Clinician Payers Payer Name Policy Type Policy Number Effective Date Expiration Date S alize CIGNA 2 [id number] 2021 00:00:00 Problems Condition Condition Condition Status Onset Resolution Last Treating Co mments Source Name Details Category Date Date Treatment Clinician Date No known No known Disease Kel y active active Seybold problems problems Allergies, Adverse Reactions, Alerts This patient has no known allergies or adverse reactions. Social History Social Habit Start Date Stop Date Quantity Comments Source Tobacco use and 2021-12-25 2021-12-25 Smokeless tobacco Ke emilyjaniya Seybold exposure 00:00:00 00:00:00 non-user Sex Ass[birth year] At [birth year] Raine Se ybold 00:00:00 00:00:00 Smoking Status Start Date Stop Date Source Never smoked tobacco Raine Seyb old Medications Ordered Filled Start Stop Current Ordering Indication Dosage Frequency Signature Comments Components Source Medication Medication Date Date Medication? Clinician (SIG) Name Name Albuterol Yes [id number] 2{puff} Q.25D Inhale 2 Raine HFA 108 (90 4-07 puffs into Se ybold Base) 00:00: the lungs MCG/ACT IN 00 every 6 AERS hours as needed for wheezing Vital Signs Vital Name Observation Time Observation Value Comments Source Systolic blood pressure 2021-12-25 16:25:00 113 mm[Hg] Raine Mcfadden Diastolic blood 2021-12-25 16:25:00 76 mm[Hg] Ebonie richardson Seybanshul pressure Heart rate 2021-12-25 16:25:00 95 /min Raine densonbotory Body temperature 2021-12-25 16:25:00 36.83 Teresa Trinh janiya Ponceybold Respiratory rate 2021-12-25 16:25:00 14 /min Trinh janiya Ponceybanshul Body height 2021-12-25 16:25:00 152.4 cm Raine densonbotory Body weight 2021-12-25 16:25:00 92.534 kg Raine arguello BMI 2021-12-25 16:25:00 39.84 kg/m2 Raine arguello Oxygen saturation in 2021-12-25 16:25:00 99 /min Raine Mcfadden Arterial blood by Pulse oximetry Procedures This patient has no known procedures. Encounters Start End Encounter Admission Attending Care Care Encounter Source Date/Time Date/Time Type Type Clinicians Facility Department ID 2021-12-26 2021-12-26 Outpatient RAINE TIM [id number] Raine 00:00:00 00:00:00 LISA dimas 2021-12-25 2021-12-25 Outpatient LAB90 RAINE LEVIN [id number] [place] 12:00:00 12:00:00 [place] dimas 2021-12-25 2021-12-25 Office Vidal Tim [id number] [place]aine 11:15:00 11:45:00 Visit Lisa Bull [id number] Se victoranshul Awad [id number] Results This patient has no known results.
[2022-01-09] MEDS ORDERED: NA CHLORIDE 0.9% 1,000 ML ONE (10:18)
[2022-01-09] MEDS ORDERED: ONDANSETRON 4 MG/2 ML VIAL ONE (10:18)
[2022-01-09] MEDS ORDERED: FAMOTIDINE 20 MG/2 ML VIAL IV ONE (10:18)
[2022-01-09 10:21] LABS: Urine Blood 3+ (Negative); Urine Glucose Negative (Negative); Urine Protein 1+ (Negative); Urine Specific Gravity 1.015 (1.005-1.030)
[2022-01-09 10:33] LABS: Hematocrit 39.3 % (36.0-45.0); RBC Red Blood Cell Count 4.47 M/uL (3.86-4.86)
[2022-01-09 10:49] LABS: Albumin 3.6 g/dL (3.4-5.0); Bilirubin Total 0.8 mg/dL (0.2-1.0); Protein, Total 8.3 g/dL (6.4-8.2)
[2022-01-09 10:50] LABS: Urine Specific Gravity/Preg 1.015 (1.005-1.030)
--- NOTE | 2022-01-09 11:14 | RAD REPORT ---
EXAM DESCRIPTION: CT - Abdomen Pelvis W Contrast - 01/09/2022 11:02 am CLINICAL HISTORY: LUQ abdominal pain, history of cholecystectomy, history of pancreatitis, fever COMPARISON: No comparisons TECHNIQUE: Biphasic, helical CT imaging of the abdomen and pelvis was performed following 100 ml non -ionic IV contrast. No oral contrast administered. All CT scans are performed using dose optimization technique as appropriate and may include automated exposure control or mA/KV adjustment according to patient size. FINDINGS: No suspicious findings in the lung bases. Patient has a very pronounced fatty infiltration pattern with small areas of spared parenchyma in the anterolateral right lobe. No suspicious liver parenchymal lesions seen. No portal vein abnormality i dentifiable. Cholecystectomy clips are present. No abnormal biliary tree dilatation. No splenomegaly or focal splenic finding. No pancreatitis findings. Pancreatic parenchyma shows no santo spicious finding. Pancreatic duct is not dilated. Symmetric renal function is seen with no hydronephrosis or suspicious renal mass. No pyelonephritis o r acute parenchymal process. No bladder abnormalities. No adrenal abnormalities. Uterus and ovaries s how no suspicious findings. No dilated bowel loops or bowel wall thickening. Appendix is normal. No acute GI process identifiable . No free air, free fluid or inflammatory stranding. No hernia, mass or bulky lymphadenopathy. Patie nt does have nonspecific sub centimeter sized mesenteric lymph nodes. No suspicious bony findings. IMPRESSION: Contrast enhanced CT abdomen and pelvis showing no acute or emergent finding. Pronounced fatty infiltration of the liver with no focal liver lesions seen. Small sub centimeter mesenteric lymph nodes are present. These are nonspecific. No acute bowel abnorm ality.
--- NOTE | 2022-01-09 12:02 | ER ---
Nurse's Notes [facility] Name: Juni Healy Age: 31 yrs Sex: Female : 1990 Arrival Date: 01/09/2022 Time: 09:25 Bed 2 Private MD: Diagnosis: Vomiting;Diarrhea, unspecified Presentation: 01/09 09:25 Chief complaint: Patient states: I have food poisoning, has been vomiting since iw Wednesday, not able to tolerate solids or fluids, is having diarrhea also. Coronavirus screen: At this time, the client does not indicate any symptoms associated with coronavirus-19. Ebola Screen: Patient negative for fever greater than or equal to 101.5 degrees Fahrenheit, and additional compatible Ebola Virus Disease symptoms Patient denies exposure to infectious person. Patient denies travel to an Ebola-affected area in the 21 days before illness onset. No symptoms or risks identified at this time. Initial Sepsis Screen: Does the patient meet any 2 criteria? No. Patient's initial sepsis screen is negative. Does the patient have a suspected source of infection? No. Patient's initial sepsis screen is negative. Risk Assessment: Do you want to hurt yourself or someone else? Patient reports no desire to harm self or others. Onset of symptoms was January 07, 2022. 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 - Social history:: Smoking status: Patient denies any tobacco usage or history of. Screenin:15 Abuse screen: Denies threats or abuse. Nutritional screening: No deficits noted. vg1 Tuberculosis screening: No symptoms or risk factors identified. Fall Risk No fall in past 12 months (0 pts). No secondary diagnosis (0 pts). IV access (20 points). Ambulatory Aid- None/Bed Rest/Nurse Assist (0 pts). Gait- Normal/Bed Rest/Wheelchair (0 pts) Mental Status- Oriented to own ability (0 pts). Total Santos Fall Scale indicates No Risk (0-24 pts). Assessment: 10:15 General: Appears in no apparent distress. comfortable, Behavior is calm, cooperative. vg1 Pain: Complains of pain in epigastric area Pain currently is 6 out of 10 on a pain scale. Quality of pain is described as aching. Neuro: Level of Consciousness is awake, alert, obeys commands, Oriented to person, place, time, situation. Cardiovascular: Patient's skin is warm and dry. Respiratory: Airway is patent Respiratory effort is even, unlabored. GI: Abdomen is round non-distended, Abdomen is tender to palpation in epigastric area Reports diarrhea, nausea, vomiting. : No signs and/or symptoms were reported regarding the genitourinary system. EENT: No signs and/or symptoms were reported regarding the EENT system. Derm: Skin is intact, is healthy with good turgor. Musculoskeletal: Circulation, motion, and sensation intact. 11:15 Reassessment: Patient appears in no apparent distress at this time. Patient and/or vg1 family updated on plan of care and expected duration. Pain level reassessed. Patient is alert, oriented x 3, equal unlabored respirations, skin warm/dry/pink. Patient states feeling better. 12:35 Reassessment: Patient appears in no apparent distress at this time. No changes from vg1 previously documented assessment. Patient is alert, oriented x 3, equal unlabored respirations, skin warm/dry/pink. Vital Signs: 09:25 BP 114 / 71; Pulse 108; Resp 16; Temp 97.4; Pulse Ox 100% on R/A; Weight 86.18 kg; iw Height 5 ft. 0 in. (152.40 cm); 10:33 BP 95 / 69; Pulse 83; Resp 16; Pulse Ox 98% on R/A; vg1 11:44 BP 115 / 83; Pulse 80; Resp 15; Pulse Ox 99% ; jl7 12:45 BP 118 / 78; Pulse 73; Resp 16; Pulse Ox 98% on R/A; vg1 09:25 Body Mass Index 37.11 (86.18 kg, 152.40 cm) iw ED Course: 09:25 Patient arrived in ED. iw 09:26 Triage completed. iw 09:26 Torey Pearson PA is PHCP. [facility] 09:26 Lasha Lemos MD is Attending Physician. [facility] 09:51 Gaby Rutherford, RN is Primary Nurse. vg1 10:15 Lipase Sent. mh5 10:15 Initial lab(s) drawn, by id, sent to lab. Inserted saline lock: 20 gauge in left vg1 antecubital area, using aseptic technique. Blood collected. 10:21 Urine collected: clean catch specimen, cloudy. 5 10:22 Patient has correct armband on for positive identification. Bed in low position. Call [facility] light in reach. Side rails up X2. Warm blanket given. Pulse ox on. NIBP on. 10:45 Arm band placed on. vg1 11:03 CT Abd/Pelvis - IV Contrast Only In Process Unspecified. EDMS 12:53 No provider procedures requiring assistance completed. IV discontinued, intact, vg1 bleeding controlled, No redness/swelling at site. Pressure dressing applied. Administered Medications: 10:20 Drug: NS 0.9% 1000 ml Route: IV; Rate: 1 bolus; Site: left antecubital; vg1 12:53 Follow up: IV Status: Completed infusion; IV Intake: 1000ml vg1 10:20 Drug: Zofran (Ondansetron) 4 mg Route: IVP; Site: left antecubital; vg1 12:54 Follow up: Response: No adverse reaction; Marked relief of symptoms vg1 10:22 Drug: Pepcid (famotidine) 20 mg Route: IVP; Site: left antecubital; vg1 12:54 Follow up: Response: No adverse reaction; Marked relief of symptoms vg1 Intake: 12:53 IV: 1000ml; Total: 1000ml. vg1 Outcome: 12:01 Discharge ordered by . [facility] 12:52 Discharged to home ambulatory. vg1 12:52 Condition: good 12:52 Discharge instructions given to patient, Instructed on discharge instructions, follow up and referral plans. medication usage, Demonstrated understanding of instructions, follow-up care, medications, Prescriptions given X 2. 12:53 Patient left the ED. vg1 Signatures: Dispatcher [employer] EDMS Torey Pearson PA PA jmm Williams, Irene, Lashell Vega RN 5 Blanca Mendoza RN RN jl7 Gaby Rutherford, CLINT RN vg1
--- NOTE | 2022-01-09 12:02 | EDPHYS ---
Physician Documentation [facility] Name: Juni Healy Age: 31 yrs Sex: Female : 1990 Arrival Date: 01/09/2022 Time: 09:25 Bed 2 Private MD: Lasha Guardado HPI: 01/09 09:32 This 31 yrs old Female presents to ER via Ambulatory with complaints of jmm Nausea/Vomiting/Diarrhea. 09:32 The patient presents to the emergency department with nausea, vomiting, diarrhea. jmm Onset: The symptoms/episode began/occurred gradually, 2 day(s) ago. Possible causes: unknown. The symptoms are aggravated by nothing. The symptoms are alleviated by nothing. Associated signs and symptoms: Pertinent positives: abdominal pain. It is unknown whether or not the patient has had similar symptoms in the past. 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 - Social history:: Smoking status: Patient denies any tobacco usage or history of. ROS: 09:32 Constitutional: Negative for fever, chills, and weight loss, Cardiovascular: Negative jmm for chest pain, palpitations, and edema, Respiratory: Negative for shortness of breath, cough, wheezing, and pleuritic chest pain. 09:32 Abdomen/GI: Positive for abdominal pain, nausea and vomiting, diarrhea. 09:32 All other systems are negative. Exam: 09:32 Constitutional: This is a well developed, well nourished patient who is awake, alert, jmm and in no acute distress. Head/Face: atraumatic. Eyes: EOMI, no conjunctival erythema appreciated ENT: Moist Mucus Membranes Neck: Trachea midline, Supple Chest/axilla: Normal chest wall appearance and motion. Cardiovascular: Regular rate and rhythm. No edema appreciated Respiratory: Normal respirations, no respiratory distress appreciated 09:32 Back: Normal ROM Skin: General appearance color normal MS/ Extremity: Moves all extremities, no obvious deformities appreciated, no edema noted to the lower extremities Neuro: Awake and alert Psych: Behavior is normal, Mood is normal, Patient is cooperative and pleasant 09:32 Abdomen/GI: Inspection: abdomen appears normal, Bowel sounds: normal, Palpation: soft, mild abdominal tenderness, in all quadrants. Vital Signs: 09:25 BP 114 / 71; Pulse 108; Resp 16; Temp 97.4; Pulse Ox 100% on R/A; Weight 86.18 kg; iw Height 5 ft. 0 in. (152.40 cm); 10:33 BP 95 / 69; Pulse 83; Resp 16; Pulse Ox 98% on R/A; vg1 11:44 BP 115 / 83; Pulse 80; Resp 15; Pulse Ox 99% ; jl7 12:45 BP 118 / 78; Pulse 73; Resp 16; Pulse Ox 98% on R/A; vg1 09:25 Body Mass Index 37.11 (86.18 kg, 152.40 cm) iw MDM: 09:33 Patient medically screened. [facility] 12:00 Data reviewed: vital signs, nurses notes. Counseling: I had a detailed discussion with taya the patient and/or guardian regarding: the historical points, exam findings, and any diagnostic results supporting the discharge/admit diagnosis, lab results, radiology results, the need for outpatient follow up, to return to the emergency department if symptoms worsen or persist or if there are any questions or concerns that arise at home. ED course: Patient is alert and non toxic in appearance in the ED. Given strict return precautions. patient understood and agrees with the plan of care. . 01/09 09:32 Order name: CBC with Diff; Complete Time: 10:45 [facility] 01/09 09:32 Order name: CMP; Complete Time: 10:55 [facility] 01/09 09:32 Order name: Lipase; Complete Time: 10:55 [facility] 01/09 10:21 Order name: Urine Dipstick-Ancillary; Complete Time: 10:21 [facility] 01/09 10:21 Order name: Urine Dipstick-Ancillary; Complete Time: 10:21 [facility] 01/09 10:39 Order name: Urine --Ancillary (enter results); Complete Time: 10:55 01/09 09:32 Order name: IV Saline Lock; Complete Time: 10:28 [facility] 01/09 09:32 Order name: Labs collected and sent; Complete Time: 10:28 [facility] 01/09 09:32 Order name: Urine Dipstick-Ancillary (obtain specimen); Complete Time: 10:15 [facility] 01/09 09:32 Order name: Urine Test (obtain specimen); Complete Time: 10:15 [facility] 01/09 10:48 Order name: CT Abd/Pelvis - IV Contrast Only; Complete Time: 11:20 [facility] Administered Medications: 10:20 Drug: NS 0.9% 1000 ml Route: IV; Rate: 1 bolus; Site: left antecubital; vg1 12:53 Follow up: IV Status: Completed infusion; IV Intake: 1000ml vg1 10:20 Drug: Zofran (Ondansetron) 4 mg Route: IVP; Site: left antecubital; vg1 12:54 Follow up: Response: No adverse reaction; Marked relief of symptoms vg1 10:22 Drug: Pepcid (famotidine) 20 mg Route: IVP; Site: left antecubital; vg1 12:54 Follow up: Response: No adverse reaction; Marked relief of symptoms vg1 Disposition Summary: 01/09/22 12:01 Discharge Ordered Location: Home [facility] Condition: Stable [facility] Diagnosis - Vomiting jmm - Diarrhea, unspecified [facility] Followup: [facility] - With: Private Physician - When: 2 - 3 days - Reason: Recheck today's complaints, Continuance of care, Re-evaluation by your physician Discharge Instructions: - Discharge Summary Sheet [facility] - Food Choices to Help Relieve Diarrhea, Adult jmm - Vomiting, Adult [facility] Forms: - Work release form [facility] - Medication Reconciliation Form [facility] - Thank You Letter [facility] - Antibiotic Education [facility] - Prescription Opioid Use [facility] Prescriptions: - ondansetron 4 mg Oral tablet,disintegrating - take 1 tablet by ORAL route every 4-6 hours; 20 tablet; Refills: 0, Product [facility] Selection Permitted - dicyclomine 20 mg Oral Tablet - take 1 tablet by ORAL route 4 times per day; 20 tablet; Refills: 0, Product [facility] Selection Permitted Signatures: Dispatcher [employer] Torey Schultz PA PA jmm Williams, Irene RN CLINT iw Gaby Rutherford RN RN vg1
[2022-01-09 13:08] VITALS: TEMP 97.4
[2022-01-09 13:12] VITALS: BP 118/78; O2SAT 98
== END 2022-01-09 12:53 | disposition home or self-care (01) ==
LOC: ER 09:14
DX: R11.2 Nausea with vomiting, unspecified (principal); R19.7 Diarrhea, unspecified; R10.12 Left upper quadrant pain
CPT/HCPCS: 96361; 85025; 36415; 81025; 81003; 83690; 80053; 74177; 96375; 96374; 99284; Q9967; J7030; J2405; J3490

== ENCOUNTER 2023-01-28 08:44 | Emergency (ER) | payer OTHER ==
--- OUTSIDE RECORDS SUMMARY | 2023-01-28 08:47 | XMS REPORT | Continuity of Care Document ---
:[address] [facility] t Address [address] [place] [address] [place] [address] Care Team Providers Name Role Phone Glenroy MORFIN, Lisa Awad Primary Care Physician [phone] LISA TIM Attending Clinician Unavailable LAB90 Attending Clinician Unavailable Lisa Tim MD Attending Clinician [phone] Payers Payer Name Policy Type Policy Number Effective Date Expiration Date S alize CIGNA 2 [id number] 2021 00:00:00 Problems Condition Condition Condition Status Onset Resolution Last Treating Co mments Source Name Details Category Date Date Treatment Clinician Date No known No known Disease Kelse y active active Seybold problems problems Allergies, Adverse Reactions, Alerts This patient has no known allergies or adverse reactions. Social History Social Habit Start Date Stop Date Quantity Comments Source Tobacco use and 2021-12-25 2021-12-25 Smokeless tobacco iMlton morataya Seybold exposure 00:00:00 00:00:00 non-user Sex Ass[birth year] At [birth year] Ollie Se ybold 00:00:00 00:00:00 Smoking Status Start Date Stop Date Source Never smoked tobacco Ollie Ponceyb old Medications Ordered Filled Start Stop Current Ordering Indication Dosage Frequency Signature Comments Components Source Medication Medication Date Date Medication? Clinician (SIG) Name Name Albuterol Yes [id number] 2{puff} Q.25D Inhale 2 Ollie HFA 108 (90 4-07 puffs into Se ybold Base) 00:00: the lungs MCG/ACT IN 00 every 6 AERS hours as needed for wheezing Vital Signs Vital Name Observation Time Observation Value Comments Source Systolic blood pressure 2021-12-25 16:25:00 113 mm[Hg] Ollie Mcfadden Diastolic blood 2021-12-25 16:25:00 76 mm[Hg] Ebonie richardson Seybold pressure Heart rate 2021-12-25 16:25:00 95 /min Ollie arguello Body temperature 2021-12-25 16:25:00 36.83 Teresa Trinh Mcfadden Respiratory rate 2021-12-25 16:25:00 14 /min Trinh Mcfadden Body height 2021-12-25 16:25:00 152.4 cm Ollie arguello Body weight 2021-12-25 16:25:00 92.534 kg Ollie arguello BMI 2021-12-25 16:25:00 39.84 kg/m2 Ollie arguello Oxygen saturation in 2021-12-25 16:25:00 99 /min Ollie Poncekayleighanshul Arterial blood by Pulse oximetry Procedures This patient has no known procedures. Encounters Start End Encounter Admission Attending Care Care Encounter Source Date/Time Date/Time Type Type Clinicians Facility Department ID 2021-12-26 2021-12-26 Outpatient OLLIE TIM [id number] Ollie 00:00:00 00:00:00 LISA dimas 2021-12-25 2021-12-25 Outpatient LAB90 OLLIE LEVIN [id number] Ollie 12:00:00 12:00:00 Seybol d 2021-12-25 2021-12-25 Office Vidal Tim [id number] Ollie 11:15:00 11:45:00 Visit Lisa Bull [id number] Se jaime Awad [id number] Results This patient has no known results.
[2023-01-28] MEDS ORDERED: METOCLOPRAMIDE 10 MG/2mL INJ ONE (09:18)
[2023-01-28] MEDS ORDERED: NA CHLORIDE 0.9% 1,000 ML ONE (09:18)
[2023-01-28 09:35] LABS: Absolute Lymphocytes (CBC) 2.2 K/uL (0.7-4.9); Hematocrit 42.8 % (36.0-45.0); Lymphocytes % 23.9 % (15.3-44.8); MCV 89.6 fL (80-100); RBC Red Blood Cell Count 4.78 M/uL (3.86-4.86)
--- NOTE | 2023-01-28 09:46 | RAD REPORT ---
EXAM DESCRIPTION: RADChest Single View01/28/2023 9:35 am CLINICAL HISTORY: CHEST PAIN COMPARISON: Chest Single View dated 01/19/2021 TECHNIQUE: Portable AP view of the chest. FINDINGS: The lungs are clear. No pneumothorax or effusion. The cardiomediastinal contours are unrem arkable. IMPRESSION: No acute cardiopulmonary process.
[2023-01-28] MEDS ORDERED: MECLIZINE HCL 12.5 MG TAB ONE (09:48)
[2023-01-28 09:52] LABS: ALT/SGPT 20 U/L (13-56); AST/SGOT 13 U/L (15-37); Albumin 4.1 g/dL (3.4-5.0); Alkaline Phosphatase 74 U/L (45-117); BUN Blood Urea Nitrogen 10 mg/dL (7-18); Bicarbonate 29 mEq/L (21-32); Bilirubin Direct 0.1 mg/dL (0-0.2); Bilirubin Indirect, Calculated 0.3 (0.2-0.8); Bilirubin Total 0.4 mg/dL (0.2-1.0); Glomerular Filtration Rate 113 ml/min (=/>90); Glucose Level 93 mg/dL (74-106); Magnesium 2.2 mg/dL (1.6-2.4); Potassium 3.9 mEq/L (3.5-5.1); Protein, Total 8.6 g/dL (6.4-8.2); Sodium Level 138 mEq/L (136-145)
[2023-01-28 09:53] LABS: Troponin High Sensitivity < 3.0 pg/mL (<58.9)
--- NOTE | 2023-01-28 10:30 | RAD REPORT ---
EXAM DESCRIPTION: CT - Head Brain Wo Cont - 01/28/2023 9:57 am CLINICAL HISTORY: DIZZINESS COMPARISON: No comparisons TECHNIQUE: Noncontrast head CT images ad were obtained without IV contrast. Multiplanar reformats we re generated and reviewed. All CT scans are performed using dose optimization technique as appropriate and may include automated exposure control or mA/KV adjustment according to patient size. FINDINGS: No intracranial hemorrhage, mass, or edema. Midline structures are unremarkable. Normal ventricular caliber for age. Cardona-white matter differentiation is preserved, without evidence of acute infarct. No abnormal extra- axial fluid collections. Mastoid air cells and visualized portions of the paranasal sinuses are clear. No acute bony findings. IMPRESSION: No evidence of an acute intracranial process.
--- NOTE | 2023-01-28 11:56 | ER ---
Nurse's Notes [facility] Name: Juni Healy Age: 32 yrs Sex: Female : 1990 Arrival Date: 01/28/2023 Time: 08:44 Bed 16 Private MD: Diagnosis: Dizziness and giddiness;Vomiting Presentation: 01/28 09:16 Chief complaint: Patient states: dizzy tired, nauseated , acid reflux X 10 days. iw Coronavirus screen: At this time, the client does not indicate any symptoms associated with coronavirus-19. Ebola Screen: Patient negative for fever greater than or equal to 101.5 degrees Fahrenheit, and additional compatible Ebola Virus Disease symptoms Patient denies exposure to infectious person. Patient denies travel to an Ebola-affected area in the 21 days before illness onset. No symptoms or risks identified at this time. Initial Sepsis Screen: Does the patient meet any 2 criteria? No. Patient's initial sepsis screen is negative. Does the patient have a suspected source of infection? No. Patient's initial sepsis screen is negative. Risk Assessment: Do you want to hurt yourself or someone else? Patient reports no desire to harm self or others. Onset of symptoms was January 18, 2023. 09:16 Method Of Arrival: Ambulatory iw 09:16 Acuity: JANE 3 iw Triage Assessment: 10:21 General: Appears in no apparent distress. comfortable, Behavior is calm, cooperative, ld1 appropriate for age. Pain: Denies pain. Historical: - Allergies: 09:17 No Known Allergies; iw - Home Meds: 09:17 None [Active]; iw - PMHx: 09:17 Anxiety; Cholecystitis; Depression; iw - PSHx: 09:17 section; Cholecystectomy; iw - Immunization history:: Client reports receiving the 2nd dose of the Covid vaccine. - Social history:: Smoking status: Patient denies any tobacco usage or history of. Screenin:20 [facility] ED Fall Risk Assessment (Adult) History of falling in the last 3 months, ld1 including since admission No falls in past 3 months (0 pts) Confusion or Disorientation No (0 pts) Intoxicated or Sedated No (0 pts) Impaired Gait No (0 pts) Mobility Assist Device Used No (0 pt) Altered Elimination No (0 pt) Score/Fall Risk Level 0 - 2 = Low Risk Oriented to surroundings, Maintained a safe environment, Hourly rounding (assess needs \T\ fall precautionary measures) done. Abuse screen: Denies threats or abuse. Denies injuries from another. Nutritional screening: No deficits noted. Tuberculosis screening: No symptoms or risk factors identified. Assessment: 10:20 Reassessment: Patient appears in no apparent distress at this time. Patient and/or ld1 family updated on plan of care and expected duration. Pain level reassessed. Patient is alert, oriented x 3, equal unlabored respirations, skin warm/dry/pink. Patient denies pain at this time. Patient states feeling better. 11:32 Reassessment: Patient appears in no apparent distress at this time. Patient and/or nj1 family updated on plan of care and expected duration. Pain level reassessed. Patient is alert, oriented x 3, equal unlabored respirations, skin warm/dry/pink. Patient denies pain at this time. Patient states feeling better. 11:54 Reassessment: Patient appears in no apparent distress at this time. Patient and/or nj1 family updated on plan of care and expected duration. Pain level reassessed. Patient is alert, oriented x 3, equal unlabored respirations, skin warm/dry/pink. Patient denies pain at this time. Patient states feeling better. Patient states symptoms have improved. Ready to go home. Will notify ED provider.. Vital Signs: 09:16 BP 94 / 71; Pulse 97; Resp 16; Temp 97.9; Pulse Ox 98% on R/A; Weight 60.78 kg; Height iw 5 ft. 0 in. ; Pain 5/10; 10:20 BP 101 / 70; Pulse 68; Resp 16; Pulse Ox 100% ; Pain 0/10; ld1 11:32 BP 113 / 67; Pulse 73; Resp 16; Pulse Ox 94% ; Pain 0/10; nj1 12:15 BP 128 / 81; Pulse 77; Resp 16; Temp 98.1(O); Pulse Ox 100% ; Pain 0/10; nj1 09:16 Body Mass Index 26.17 (60.78 kg, 152.4 cm) iw 09:16 Pain Scale: Adult iw 10:20 Pain Scale: Adult ld1 11:32 Pain Scale: Adult nj1 12:15 Pain Scale: Adult nj1 ED Course: 08:47 Patient arrived in ED. mr 08:49 Torey Pearson PA is PHCP. jmm 08:49 Cinthia Watson MD is Attending Physician. jmm 09:10 Daisy Solares, RN is Primary Nurse. ld1 09:16 Triage completed. iw 09:17 Arm band placed on. iw 09:37 XRAY Chest (1 view) In Process Unspecified. EDMS 09:39 Inserted saline lock: 20 gauge in left antecubital area, using aseptic technique. Blood ld1 collected. 09:58 CT Head Brain wo Cont In Process Unspecified. EDMS 10:21 Patient has correct armband on for positive identification. Placed in gown. Bed in low ld1 position. Call light in reach. 11:54 Cinthia Moon MD is Referral Physician. m 12:15 No provider procedures requiring assistance completed. IV discontinued, intact, nj1 bleeding controlled. Administered Medications: 09:39 Drug: NS 0.9% IV 1000 ml Route: IV; Rate: 1 bolus; Site: left antecubital; ld1 12:15 Follow up: IV Status: Completed infusion; IV Intake: 1000ml nj1 12:23 Follow up: Response: No adverse reaction nj1 09:39 Drug: metoCLOPramide IVP 20 mg Route: IVP; Site: left antecubital; ld1 12:23 Follow up: Response: No adverse reaction nj1 09:46 Drug: Meclizine PO 50 mg Route: PO; ld1 12:23 Follow up: Response: No adverse reaction nj1 Medication: 12:22 VIS not applicable for this client. nj1 Intake: 12:15 IV: 1000ml; Total: 1000ml. nj1 Outcome: 11:55 Discharge ordered by . jmm 12:15 Discharged to home ambulatory. nj1 12:15 Condition: stable 12:15 Discharge instructions given to patient, Instructed on discharge instructions, follow up and referral plans. medication usage, Demonstrated understanding of instructions, follow-up care, medications, Prescriptions given X 2. 12:23 Patient left the ED. nj1 Signatures: Dispatcher [employer] EDMS Torey Pearson PA PA [facility] FitoNilda Saranya Mas RN RN iw Daisy Solares, RN RN ld1 Jena Montilla RN RN nj1 Corrections: (The following items were deleted from the chart) 12:24 12:23 IV Status: Completed infusion; IV Intake: 1000ml njHollis nj1
--- NOTE | 2023-01-28 11:56 | EDPHYS ---
Physician Documentation [facility] Name: Juni Healy Age: 32 yrs Sex: Female : 1990 Arrival Date: 01/28/2023 Time: 08:44 Bed 16 Private MD: ED Physician Cinthia Watson HPI: 01/28 08:57 This 32 yrs old Female presents to ER via Ambulatory with complaints of jmm Dehydration. 08:57 The patient or guardian reports chest pain that is located primarily in the substernal jmm area. The pain does not radiate. Associated signs and symptoms: Pertinent positives: dizziness, nausea, shortness of breath, vomiting. Is a 32-year-old female with history of depression, anxiety that complains of ongoing nausea vomiting. Patient states she has had this to a lesser degree ever since her gastric bypass surgery. States that today she feels more dizzy like she is going to pass out she states. Also describes the dizziness as if the room was moving.. Historical: - Allergies: 09:17 No Known Allergies; iw - Home Meds: 09:17 None [Active]; iw - PMHx: 09:17 Anxiety; Cholecystitis; Depression; iw - PSHx: 09:17 section; Cholecystectomy; iw - Immunization history:: Client reports receiving the 2nd dose of the Covid vaccine. - Social history:: Smoking status: Patient denies any tobacco usage or history of. ROS: 08:57 Constitutional: Negative for fever, chills, and weight loss. jmm 08:57 Cardiovascular: Positive for chest pain. 08:57 Abdomen/GI: Positive for nausea and vomiting. 08:57 Neuro: Positive for dizziness. 08:57 All other systems are negative. Exam: 08:57 Constitutional: This is a well developed, well nourished patient who is awake, alert, jmm and in no acute distress. Head/Face: atraumatic. Eyes: EOMI, no conjunctival erythema appreciated ENT: Moist Mucus Membranes Neck: Trachea midline, Supple Chest/axilla: Normal chest wall appearance and motion. Cardiovascular: Regular rate and rhythm. No edema appreciated Respiratory: Normal respirations, no respiratory distress appreciated Abdomen/GI: Non distended Back: Normal ROM Skin: General appearance color normal 08:57 Musculoskeletal/extremity: ROM: intact in all extremities. 08:57 Skin: Appearance: Color: normal in color. 08:57 Neuro: Orientation: appropriate for stated age, Mentation: is normal, Memory: is normal. 08:57 Psych: Behavior/mood is pleasant, cooperative. Vital Signs: 09:16 BP 94 / 71; Pulse 97; Resp 16; Temp 97.9; Pulse Ox 98% on R/A; Weight 60.78 kg; Height iw 5 ft. 0 in. ; Pain 5/10; 10:20 BP 101 / 70; Pulse 68; Resp 16; Pulse Ox 100% ; Pain 0/10; ld1 11:32 BP 113 / 67; Pulse 73; Resp 16; Pulse Ox 94% ; Pain 0/10; nj1 12:15 BP 128 / 81; Pulse 77; Resp 16; Temp 98.1(O); Pulse Ox 100% ; Pain 0/10; nj1 09:16 Body Mass Index 26.17 (60.78 kg, 152.4 cm) iw 09:16 Pain Scale: Adult iw 10:20 Pain Scale: Adult ld1 11:32 Pain Scale: Adult nj1 12:15 Pain Scale: Adult nj1 MDM: 08:57 Patient medically screened. [facility] 14:23 Differential diagnosis: acute myocardial infarction, anxiety, pulmonary embolus, [facility] Vertigo. Data reviewed: vital signs, nurses notes, lab test result(s), radiologic studies, CT scan. Consideration of Admission/Observation Escalation of care including admission/observation considered. I considered the following discharge prescriptions or medication management in the emergency department Medications were administered in the Emergency Department. See MAR. Counseling: I had a detailed discussion with the patient and/or guardian regarding: the historical points, exam findings, and any diagnostic results supporting the discharge/admit diagnosis, lab results, radiology results, the need for outpatient follow up, to return to the emergency department if symptoms worsen or persist or if there are any questions or concerns that arise at home. ED course: Patient states feeling much better. Able to tolerate p.o. in the ED. Abdomen is nontender to palpation. I do not currently suspect an acute intra-abdominal process. I do not suspect PE or ACS. CT the brain was normal. 01/28 09:02 Order name: Basic Metabolic Panel; Complete Time: 10:00 [facility] 01/28 09:02 Order name: CBC with Diff; Complete Time: 09:37 [facility] 01/28 09:02 Order name: D-Dimer; Complete Time: 09:46 [facility] 01/28 09:02 Order name: LFT's; Complete Time: 10:00 [facility] 01/28 09:02 Order name: Magnesium; Complete Time: 10:00 [facility] 01/28 09:02 Order name: Troponin HS; Complete Time: 10:00 [facility] 01/28 09:02 Order name: XRAY Chest (1 view); Complete Time: 09:46 [facility] 01/28 09:47 Order name: CT Head Brain wo Cont; Complete Time: 10:33 [facility] 01/28 09:02 Order name: EKG; Complete Time: 09:03 [facility] 01/28 09:02 Order name: Cardiac monitoring; Complete Time: 09:10 [facility] 01/28 09:02 Order name: EKG - Nurse/Tech; Complete Time: 09:39 [facility] 01/28 09:02 Order name: IV Saline Lock; Complete Time: 09:27 [facility] 01/28 09:02 Order name: Labs collected and sent; Complete Time: 09:27 [facility] 01/28 09:02 Order name: O2 Per Protocol; Complete Time: 09:08 [facility] 01/28 09:02 Order name: O2 Sat Monitoring; Complete Time: 09:08 [facility] Administered Medications: 09:39 Drug: NS 0.9% IV 1000 ml Route: IV; Rate: 1 bolus; Site: left antecubital; ld1 12:15 Follow up: IV Status: Completed infusion; IV Intake: 1000ml nj1 12:23 Follow up: Response: No adverse reaction nj1 09:39 Drug: metoCLOPramide IVP 20 mg Route: IVP; Site: left antecubital; ld1 12:23 Follow up: Response: No adverse reaction nj1 09:46 Drug: Meclizine PO 50 mg Route: PO; ld1 12:23 Follow up: Response: No adverse reaction nj1 Disposition: 15:51 STAFF ATTESTATION STATEMENT: I was immediately available onsite in the emergency sd2 department for consultation in the care of this patient. I did not see or examine this patient. Cinthia Watson MD. Disposition Summary: 01/28/23 11:55 Discharge Ordered Location: Home [facility] Condition: Stable [facility] Diagnosis - Dizziness and giddiness jmm - Vomiting jm Followup: [facility] - With: Cinthia Moon MD - When: 2 - 3 days - Reason: Recheck today's complaints, Continuance of care, Re-evaluation by your physician Discharge Instructions: - Discharge Summary Sheet jmm - Dizziness jmm - Vomiting, Adult jmm Forms: - Medication Reconciliation Form jm - Thank You Letter jmm - Antibiotic Education m - Prescription Opioid Use [facility] - Work release form nj1 Prescriptions: - ondansetron 4 mg Oral Tablet,disintegrating - take 1 tablet by ORAL route every 4-6 hours As needed as needed for nausea and jmm vomiting; 30 tablet; Refills: 0, Product Selection Permitted - Meclizine 25 mg Oral Tablet - take 1 tablet by ORAL route every 8 hours As needed; 30 tablet; Refills: 0, jmm Product Selection Permitted Signatures: Dispatcher [employer] EDTorey Doll PA PA [facility] Saranya Mas RN RN iw Daisy Solares RN RN ld1 Cinthia Watson MD MD sd2 Jena Montilla RN nj1
[2023-01-28 12:53] VITALS: BP 128/81; TEMP 98.1; O2SAT 100
--- NOTE | 2023-01-29 05:36 | EKG ---
Test Date: 2023-01-28 Test Time: 09:32:46 [employer] Worker: Kelli BELLO MEASUREMENT RESULTS: Intervals: Rate: 67 IL: 116 QRSD: 66 QT: 388 QTc: 409 [place]: P: 57 IL: 116 QRS: 47 T: 48 INTERPRETIVE STATEMENTS: Normal sinus rhythm Low voltage QRS Cannot rule out Anterior infarct, age undetermined Abnormal ECG Compared to ECG 01/19/2021 05:48:16 Low QRS voltage now present Myocardial infarct finding now present Sinus tachycardia no longer present Electronically Signed On 01-29-23 05:33:14 CDT by Nader Limon
== END 2023-01-28 12:23 | disposition home or self-care (01) ==
LOC: ER 08:44
DX: R42 Dizziness and giddiness (principal); R11.10 Vomiting, unspecified; R07.9 Chest pain, unspecified
CPT/HCPCS: 96361; 93005; 85025; 80048; 36415; 83735; 85379; 80076; 84484; 70450; 71045; 96374; 99284; J8597; J2765; J7030

== ENCOUNTER 2023-12-23 13:00 | Emergency (ER) | payer OTHER ==
--- OUTSIDE RECORDS SUMMARY | 2023-12-23 13:03 | XMS REPORT | Continuity of Care Document ---
Author Name Unknown Address [address] [facility] [address] [place] [address] [facility] thconnect Address [address] [facility] [address] [place] [address] Care Team Providers Care Pain Coordinator Name Role Phone Glenroy MORFIN, Lisa Awad Primary Care Physician YANE MARIE Attending Clinician YANE Rodriguez Attending Clinician Lito lable Lab, Alistair - Db Attending Clinician Unavailable TATIANA SAWYER Attending Clinician Unavailable TATIANA SAWYER Attending Clinician Unavailable Ultrasound, Dameoncharles Attending Clinician Tatiana Arvizu MD Attending Clinician [email or web address]_Kasandritaa_S Attending Clinician LISA Silver Attending Clinician Jc ilable LAB90 Attending Clinician Lisa Lux MD Attending Clinician + [phone] [email or web address]_S Admitting Clinician Uli salas Payers Payer Name Policy Type Policy Number Effective Date Expirati on Date Source [place] [employer] [id number] 2023 00:00:00 [employer] 2 [id number] 2021 00:00:00 Problems Condition Name Condition Details Condition Category Status Onset Date Resolution Date Last Treatment Date Treating Clinician Comments Source 26 weeks gestation of 26 weeks gestation of Disease Active 2- 00:00: 00 [facility] Cervical high risk human papillomav irus (HPV) DNA test positive Cervical high risk human papillomav irus (HPV) DNA test positive Disease Active 1 00:00: 00 [facility] Previous section complicati ng Previous section complicati ng Disease Active 05-17 00:00: 00 Overview: Formattin g of this note might be different from the original. Previous LUTCS at 40 weeks. Desire repeat [facility] High-risk in third trimester High-risk in third trimester Disease Active 05-01 00:00: 00 [facility] ASCUS (atypical squamous cells of undetermin ed significan ce) on Pap smear ASCUS (atypical squamous cells of undetermin ed significan ce) on Pap smear Disease Active 05-01 00:00: 00 [facility] Back pain complicati ng , third trimester Back pain complicati ng , third trimester Disease Active 05-01 00:00: 00 [facility] No known active problems No known active problems Disease Raine Mcfadden Allergies, Adverse Reactions, Alerts Allergy Name Allergy Type Status Severity Reaction(s) Onset Date Inactive Date Treating Clinician Comments Source NO KNOWN ALLERGIE S Drug Class Active [facility] Social History Social Habit Start Date Stop Date Quantity Comments Source ASSERTION 2023-05-03 00:00:00 [facility] History of tobacco use Cigarette Smoker [facility] intake 2023-12-14 00:00:00 2023-12-14 00:00:00 Current non-drinker of alcohol (finding) [facility] History of Social function 2023-11-30 00:00:00 2023-11-30 00:00:00 [facility] Tobacco use and exposure 2023-08-24 00:00:00 2023-08-24 00:00:00 Smokeless tobacco non-user [facility] Sex Assigned At 1990 00:00:00 1990 00:00:00 [facility] Smoking Status Start Date Stop Date Source Ex-smoker 2023-08-24 00:00:00 2023-08-24 00:00:00 [facility] Never smoked tobacco Raine Mcfadden Medications Ordered Medication Name Filled Medication Name Start Date Stop Date Current Medication? Ordering Clinician Indication Dosage Frequency Signature (SIG) Comments Components Source VITS W-CA,FE,FA, <1MG, ( VITAMIN ORAL) 12-13 09:55: 32 Yes 1{tbl} Take 1 Tab by mouth daily. [facility] metroNIDAZO LE (FLAGYL) 500 mg tablet 00:00: 00 Yes [id number] 500mg Take 1 tablet by mouth every 12 (twelve) hours. [facility] fluconazole (DIFLUCAN) 150 mg tablet 00:00: 00 11-18 05:59 :00 Yes [id number] 150mg Take 1 tablet by mouth once now for 1 dose. [facility] VITS W-CA,FE,FA, <1MG, ( VITAMIN ORAL) 10-21 10:22: 51 Yes 1{tbl} Take 1 Tab by mouth daily. [facility] Albuterol HFA 108 (90 Base) MCG/ACT IN AERS 12-25 00:00: 00 Yes [id number] 2{puff} Q.25D Inhale 2 puffs into the lungs every 6 hours as needed for wheezing Raine Mcfadden VITS W-CA,FE,FA, <1MG, ( VITAMIN ORAL) 05-17 12:29: 56 Yes 1{tbl} Take 1 Tab by mouth daily. [facility] Immunizations Ordered Immunization Name Filled Immunization Name Date Status Comments Source TDAP Unknown Completed [facility] TDAP Unknown Completed [facility] TDAP Unknown Completed [facility] TDAP Unknown Completed [facility] TDAP Unknown Completed [facility] TDAP Unknown Completed [facility] TDAP Unknown Completed [facility] TDAP Unknown Completed [facility] TDAP Unknown Completed [facility] TDAP Unknown Completed [facility] TDAP Unknown Completed [facility] TDAP Unknown Completed [facility] TDAP Unknown Completed [facility] TDAP Unknown Completed [facility] TDAP Unknown Completed [facility] TDAP Unknown Completed [facility] TDAP Unknown Completed [facility] TDAP Unknown Completed [facility] TDAP Unknown Completed [facility] TDAP Unknown Completed [facility] TDAP Unknown Completed [facility] TDAP Unknown Completed [facility] TDAP Unknown Completed [facility] TDAP Unknown Completed [facility] TDAP Unknown Completed [facility] TDAP Unknown Completed [facility] TDAP Unknown Completed [facility] TDAP Unknown Completed [facility] TDAP Unknown Completed [facility] TDAP Unknown Completed [facility] TDAP Unknown Completed [facility] Vital Signs Vital Name Observation Time Observation Value Comments S ource Systolic blood pressure 2023-11-30 14:28:00 95 mm[Hg] [facility] Diastolic blood pressure 2023-11-30 14:28:00 66 mm[Hg] [facility] Heart rate 2023-11-30 14:28:00 78 /min [facility] Respiratory rate 2023-11-30 14:28:00 18 /min [facility] Body height 2023-11-30 14:28:00 152.4 cm [facility] Body weight 2023-11-30 14:28:00 65.862 kg [facility] BMI 2023-11-30 14:28:00 28.36 kg/m2 [facility] Oxygen saturation in Arterial blood by Pulse oximetry 2023-11-30 14:28:00 100 /min [facility] Systolic blood pressure 2023-11-16 17:11:00 92 mm[Hg] [facility] Diastolic blood pressure 2023-11-16 17:11:00 47 mm[Hg] [facility] Heart rate 2023-11-16 17:11:00 88 /min [facility] Body height 2023-11-16 17:11:00 152.4 cm [facility] Body weight 2023-11-16 17:11:00 64.411 kg [facility] BMI 2023-11-16 17:11:00 27.73 kg/m2 [facility] Systolic blood pressure 2023-11-04 14:09:00 97 mm[Hg] [facility] Diastolic blood pressure 2023-11-04 14:09:00 60 mm[Hg] [facility] Heart rate 2023-11-04 14:09:00 82 /min [facility] Body temperature 2023-11-04 14:09:00 36.72 Teresa [facility] Respiratory rate 2023-11-04 14:09:00 16 /min [facility] Body height 2023-11-04 14:09:00 152.4 cm [facility] Body weight 2023-11-04 14:09:00 63.095 kg [facility] BMI 2023-11-04 14:09:00 27.17 kg/m2 [facility] Systolic blood pressure 2023-10-21 16:22:00 100 mm[Hg] [facility] Diastolic blood pressure 2023-10-21 16:22:00 64 mm[Hg] [facility] Heart rate 2023-10-21 16:22:00 76 /min [facility] Respiratory rate 2023-10-21 16:22:00 18 /min [facility] Body height 2023-10-21 16:22:00 152.4 cm [facility] Body weight 2023-10-21 16:22:00 62.596 kg [facility] BMI 2023-10-21 16:22:00 26.95 kg/m2 [facility] Systolic blood pressure 2023-09-21 16:37:00 91 mm[Hg] [facility] Diastolic blood pressure 2023-09-21 16:37:00 59 mm[Hg] [facility] Heart rate 2023-09-21 16:37:00 78 /min [facility] Body temperature 2023-09-21 16:37:00 36.72 Teresa [facility] Respiratory rate 2023-09-21 16:37:00 18 /min [facility] Body height 2023-09-21 16:37:00 152.4 cm [facility] Body weight 2023-09-21 16:37:00 61.236 kg [facility] BMI 2023-09-21 16:37:00 26.37 kg/m2 [facility] Systolic blood pressure 2023-08-24 15:10:00 102 mm[Hg] [facility] Diastolic blood pressure 2023-08-24 15:10:00 66 mm[Hg] [facility] Heart rate 2023-08-24 15:10:00 84 /min [facility] Body temperature 2023-08-24 15:10:00 36.72 Teresa [facility] Respiratory rate 2023-08-24 15:10:00 16 /min [facility] Body height 2023-08-24 15:10:00 152.4 cm [facility] Body weight 2023-08-24 15:10:00 59.875 kg [facility] BMI 2023-08-24 15:10:00 25.78 kg/m2 [facility] Systolic blood pressure 2021-12-25 16:25:00 113 mm[Hg] Raine ybo ld Diastolic blood pressure 2021-12-25 16:25:00 76 mm[Hg] Raine ybo ld Heart rate 2021-12-25 16:25:00 95 /min Kelse y Seybold Body temperature 2021-12-25 16:25:00 36.83 Teresa Raine ybold Respiratory rate 2021-12-25 16:25:00 14 /min Raine ybold Body height 2021-12-25 16:25:00 152.4 cm Trinh ey Seybold Body weight 2021-12-25 16:25:00 92.534 kg Trinh ey Seybold BMI 2021-12-25 16:25:00 39.84 kg/m2 Trinh ey Seybold Oxygen saturation in Arterial blood by Pulse oximetry 2021-12-25 16:25:00 99 /min Raine spears Procedures Procedure Date / Time Performed Performing Clinicia n Source POCT URINALYSIS W/O SPECIFIC GRAVITY 2023-11-30 14:29:00 [facility] POCT URINALYSIS W/O SPECIFIC GRAVITY 2023-11-16 00:00:00 [facility] TDAP VACCINE, >11 YRS, IM 2023-11-04 14:10:57 [facility] POCT URINALYSIS W/O SPECIFIC GRAVITY 2023-11-04 00:00:00 [facility] CBC WITH DIFF 2023-10-26 14:52:00 Cynthia [facility] HB ABO GROUPING 2023-10-26 14:52:00 FerrerDeja [facility] GLUCOSE 1 HOUR POST PRANDIAL 2023-10-26 14:52:00 [facility] HIV 1/2 AG-AB WITH REFLEX 2023-10-26 14:52:00 [facility] POCT URINALYSIS W/O SPECIFIC GRAVITY 2023-10-21 00:00:00 [facility] POCT URINALYSIS W/O SPECIFIC GRAVITY 2023-09-21 00:00:00 [facility] SECOND AND THIRD TRIMESTER ULTRASOUND 2023-09-09 15:49:00 Cynthia [facility] >14 WEEKS US LIMITED 2023-08-24 15:54:25 [facility] POCT TEST 2023-08-24 00:00:00 Cynthia [facility] POCT URINALYSIS W/O SPECIFIC GRAVITY 2023-08-24 00:00:00 [facility] Encounters Start Date/Time End Date/Time Encounter Type Admission Type Attending [facility] Care Department Encounter ID Source 2023-12-28 08:15:00 2023-12-28 08:15:00 Outpatient R FERRER-RAUL S, YANE FERRER-RAUL S, YANE [facility] [id number] [facility] 2023-12-20 00:00:00 2023-12-20 00:00:00 Telephone Wilder s [facility] BUILDING 1..840.114 350.1.13.10 4.2.7.2.686 [id number] 134 [id number] [facility] 2023-12-14 09:45:00 2023-12-14 10:00:48 Outpatient R FERRER-RAUL S, YANE FERRER-RAUL S, [facility] [id number] [facility] 2023-11-30 09:30:00 2023-11-30 09:35:36 Outpatient R FERRER-RAUL S, YANE FERRER-RAUL S, [facility] [id number] [facility] 2023-11-30 09:30:00 2023-11-30 09:35:36 Routine Visit Carissa-Raul sFlorentinol [facility] 1.840.114 350.1.13.10 4.2.7.2.686 [id number] [facility] 2023-11-18 08:00:00 2023-11-18 08:00:00 Outpatient R FERRER-RAUL S, YANE [facility] [id number] [facility] 2023-11-18 00:00:00 2023-11-18 00:00:00 Case Management Ferrer-Raul sMichelleYane [facility] BUILDING 1..840.114 350.1.13.10 4.2.7.2.686 [id number] 134 [id number] [facility] 2023-11-16 11:15:00 2023-11-16 11:18:24 Outpatient R FERRER-RAUL S, YANE [facility]UL [facility] [id number] [facility] 2023-11-16 11:15:00 2023-11-16 11:18:24 Routine Visit Ferrer-Raul s [facility] PRIMARY [facility] SPECIALTY CARE 1.2840.114 350.1.13.10 4.2.7.2.686 [id number] 134 [id number] [facility] 2023-11-04 08:00:00 2023-11-04 08:18:37 Routine Visit Ferrer-Raul s [facility] SPECIAL[facility] CARE 1.840.114 350.1.13.10 4.2.7.2.686 [id number] [facility] 2023-11-04 08:00:00 2023-11-04 08:18:37 Outpatient R FERRER-RAUL S, YANE FERRER-RAUL S, [facility] [id number] [facility] 2023-10-28 00:00:00 2023-10-28 00:00:00 Telephone Wilder zimmer [facility] NAL BUILDING 1.840.114 350.1.13.10 4.2.7.2.686 [id number] [facility] 2023-10-26 07:45:00 2023-10-26 09:33:14 Training And Development Officer Visit Lab, Alistair Alba s [facility] NADER?[facility] BU[facility] 1.840.114 350.1.13.10 4.2.7.2.686 [id number] [facility] 2023-10-26 07:45:00 2023-10-26 07:45:00 Outpatient R FERRER-RAUL S, YANE FERRER-RAUL S, YANE [facility] [id number] [facility] 2023-10-26 00:00:00 2023-10-26 00:00:00 [facility] 1.2.840.114 350.1.13.10 4.2.7.2.686 [id number] [facility] 2023-10-21 10:30:00 2023-10-21 10:36:01 [facility] 1.2.840.114 350.1.13.10 4.2.7.2.686 [id number] [facility] 2023-10-21 10:30:00 2023-10-21 10:36:01 Outpatient R FERRER-RAUL S, YANE FERRER-RAUL S, YANE [facility] [id number] [facility] 2023-10-21 00:00:00 2023-10-21 00:00:00 Telephone Yane Mckee [facility] 1.2.840.114 350.1.13.10 4.2.7.2.686 [id number] 134 [id number] [facility] 2023-10-19 10:30:00 2023-10-19 10:30:00 Outpatient R FERRER-RAUL S, YANE FERRER-RAUL S, YANE [facility] [id number] [facility] 2023-09-21 10:45:00 2023-09-21 10:50:23 Outpatient R FERRER-RAUL S, YANE FERRER-RAUL S, YANE [facility] [id number] [facility] 2023-09-21 10:45:00 2023-09-21 10:50:23 Routine Visit Yane Mckee [facility] 1.2.840.114 350.1.13.10 4.2.7.2.686 [id number] 134 [id number] [facility] 2023-09-09 09:00:00 2023-09-09 09:36:14 Outpatient R TATIANA SAWYER SHANNON [facility] [id number] [facility] 2023-09-09 09:00:00 2023-09-09 09:36:14 Training And Development Officer Visit Ultrasound, Tatiana Moses [facility] FITNESS CONSULTANT [facility] 1.2.840.114 350.1.13.10 4.2.7.2.686 [id number] [facility] 2023-09-03 00:00:00 2023-09-03 00:00:[address] [facility] 1.2.840.114 350.1.13.10 4.2.7.2.686 [id number] 134 [id number] [facility] 2023-08-31 00:00:00 2023-08-31 00:00:00 Letter (Out) Wilder zimmer [facility] 1.2.840.114 350.1.13.10 4.2.7.2.686 [id number] 134 [id number] [facility] 2023-08-26 00:00:00 2023-08-26 00:00:00 [facility] 1.2.840.114 350.1.13.10 4.2.7.2.686 [id number] [facility] 2023-08-24 11:00:00 2023-08-24 11:15:00 Training And Development Officer Visit Lab, Alistair Garcia [facility] 1.2.840.114 350.1.13.10 4.2.7.2.686 [id number] [facility] 2023-08-24 09:00:00 2023-08-24 10:02:07 Outpatient R WILDER S, YANE CARISSA-RAUL S, [facility] [id number] [facility] 2023-08-24 09:00:00 2023-08-24 09:30:00 [facility] 1..840.114 350.1.13.10 4.2.7.2.686 [id number] [facility] 2023-08-10 09:00:00 2023-08-10 09:00:00 Outpatient R WILDER S, YANE [facility]UL [facility] [id number] [facility] 2023-07-21 00:00:00 2023-07-21 00:00:00 Outpatient GC_GCBZW_Ka diyala_S [facility] [id number] [facility] 2021-12-26 00:00:00 2021-12-26 00:00:00 Outpatient LISA NI [id number] Raine Mcfadden 2021-12-25 12:00:00 2021-12-25 12:00:00 Outpatient LAB90 RAINE LEVIN [id number] Raine Mcfadden 2021-12-25 11:15:00 2021-12-25 11:45:00 Office Visit Lisa Ni Carmen 1.2.840.114 350.1.13.13 1.2.7.2.686 [id number] Raine Mcfadden Results Test Description Test Time Test Comments Results Result Co mments Source [facility] w/o Specific [id number] 17:07:00* Test Item Value Reference Range Interpretation Comme nts POCT PH U (test code = 3254) n/a 5-8 POCT U LEUK EST (test code = 3263) n/a Negative - Negative POCT U NIT (test code = 3262) n/a Negative - Negati ve POCT U PROT (test code = 3259) negative Negative - Negat marvin POCT U GLU (test code = 3256) negative Negative - Negati ve POCT U KETONE (test code = 3258) n/a Negative - Neg ative POCT U BLD (test code = 3257) n/a Negative - Negati ve [facility] Urinalysis w/o Specific [id number] 14:06:00* Test Item Value Reference Range Interpretation Comme nts POCT PH U (test code = 3254) n/a 5-8 POCT U LEUK EST (test code = 3263) n/a Negative - Negative POCT U NIT (test code = 3262) n/a Negative - Negati ve POCT U PROT (test code = 3259) negative Negative - Negat marvin POCT U GLU (test code = 3256) negative Negative - Negati ve POCT U KETONE (test code = 3258) n/a Negative - Neg ative POCT U BLD (test code = 3257) n/a Negative - Negati ve [facility] Urinalysis w/o Specific [id number] 16:29:00* Test Item Value Reference Range Interpretation Comme nts POCT PH U (test code = 3254) N/A 5-8 POCT U LEUK EST (test code = 3263) N/A Negative - Negative POCT U NIT (test code = 3262) N/A Negative - Negati ve POCT U PROT (test code = 3259) Negative Negative - Negat marvin POCT U GLU (test code = 3256) Negative Negative - Negati ve POCT U KETONE (test code = 3258) N/A Negative - Neg ative POCT U BLD (test code = 3257) N/A Negative - Negati ve [facility] Urinalysis w/o Specific [id number] 16:29:00* Test Item Value Reference Range Interpretation Comme nts POCT PH U (test code = 3254) N/A 5-8 POCT U LEUK EST (test code = 3263) N/A Negative - Negative POCT U NIT (test code = 3262) N/A Negative - Negati ve POCT U PROT (test code = 3259) Negative Negative - Negat marvin POCT U GLU (test code = 3256) Negative Negative - Negati ve POCT U KETONE (test code = 3258) N/A Negative - Neg ative POCT U BLD (test code = 3257) N/A Negative - Negati ve [facility] Urinalysis w/o Specific [id number] 16:29:00* Test Item Value Reference Range Interpretation Comme nts POCT PH U (test code = 3254) N/A 5-8 POCT U LEUK EST (test code = 3263) N/A Negative - Negative POCT U NIT (test code = 3262) N/A Negative - Negati ve POCT U PROT (test code = 3259) Negative Negative - Negat marvin POCT U GLU (test code = 3256) Negative Negative - Negati ve POCT U KETONE (test code = 3258) N/A Negative - Neg ative POCT U BLD (test code = 3257) N/A Negative - Negati ve [facility] Urinalysis w/o Specific [id number] 16:29:00* Test Item Value Reference Range Interpretation Comme nts POCT PH U (test code = 3254) N/A 5-8 POCT U LEUK EST (test code = 3263) N/A Negative - Negative POCT U NIT (test code = 3262) N/A Negative - Negati ve POCT U PROT (test code = 3259) Negative Negative - Negat marvin POCT U GLU (test code = 3256) Negative Negative - Negati ve POCT U KETONE (test code = 3258) N/A Negative - Neg ative POCT U BLD (test code = 3257) N/A Negative - Negati ve [facility] Urinalysis w/o Specific [id number] 16:45:00* Test Item Value Reference Range Interpretation Comme nts POCT PH U (test code = 3254) N/A 5-8 POCT U LEUK EST (test code = 3263) N/A Negative - N egative POCT U NIT (test code = 3262) N/A Negative - Negati ve POCT U PROT (test code = 3259) NEG Negative - Negat marvin POCT U GLU (test code = 3256) NEG Negative - Negati ve POCT U KETONE (test code = 3258) N/A Negative - Neg ative POCT U BLD (test code = 3257) N/A Negative - Negati ve [facility] URINALYSIS W/O SPECIFIC [id number] 15:24:00* Test Item Value Reference Range Interpretation Comme nts POCT PH U (test code = 3254) n/a 5-8 POCT U LEUK EST (test code = 3263) n/a Negative - Negative POCT U NIT (test code = 3262) n/a Negative - Negati ve POCT U PROT (test code = 3259) 30 Negative - Negat marvin POCT U GLU (test code = 3256) negative Negative - Negati ve POCT U KETONE (test code = 3258) n/a Negative - Neg ative POCT U BLD (test code = 3257) n/a Negative - Negati ve [facility] [id number] 15:24:00* Test Item Value Reference Range Interpretation Comme nts POCT PREG (test code = 1605) Positive On board controls acceptable with C Line (test code = 3574) Yes POCT PREG LOT # (test code = 3575) POCT PREG TEST DATE ( test code = 3576) [facility] Notes Date/Time Note Provider Source 2023-12-20 12:47:01 [id number] -04-01T12:47:01 Recieved fax from [employer]. Signed and faxed back.Title 19- PP compression..sigm [id number] encounter [id number]:48:16Telephone encounter [id number] .[id number] for patient [id number] d C-CDA narrative [id number] Henley RN[address] [id number] [id number] T12:48:161.2.840.745661.1.72.3.15| [id number] Nely Henley RN [facility] 2023-11-30 09:30:00 76/Kd9NxI2P7bweOOxKj woZ/dYaToU1yDr GDxh3yGx9n8DWkqMzXKGTYBK6/78nv7636 -11-29T09:30:00 ROUTINE VISIT11/30/2023 9:41 AMSUBJECTIVEAnddea Healy is a 33 year old at 32w1d who presents for routine visit. She has no complaints today: loss of fluid, vaginal bleeding, and signs or symptoms of pre-eclampsia. Good movement. Occasional contractions.OBJECTIVEBP 95/66 | Pulse 78 | Resp 18 | Ht 5' (1.524 m) | Wt 145 lb 3.2 oz (65.9 kg) | LMP 04/19/2023 (Exact Date) | SpO2 100% | BMI 28.36 kg/m?Physical Exam:Gen: A&Ox3, NADAbd: Soft, gravid, NTTP, ND, no rebound or guardingExt: No calf tendernessGU: deferredASSESSMENT:Juni Healy is a 33 year old at 32w1d who presents for routine visit.Patient Active Problem ListDiagnosisHigh-risk in third trimesterASCUS (atypical squamous cells of undetermined significance) on Pap smearBack pain complicating , third trimesterPrevious section complicating pregnancyCervical high risk human papillomavirus (HPV) DNA test positivePLAN1. 30 weeks gestation of - POCT Urinalysis w/o Specific Gravity2. High-risk in third trimester3. Previous section complicating --RCS scheduled for 01/18/24--Reviewed with patient FAC-- labor warnings reviewed--All questions answered 15018-9Mkkcvein mqdfMG8675-92-19Y24:42:39Progress noteTXT1.2.840.267103.1.13.104.2.7 .2.227700|[id number] for patient pack41246-9UrmlKZZWQBDEUHCCxgkrekk d C-CDA narrative text[address] Qq[id number] 09ZWJZAHOBCSYWVWTFIRLFWZ9768-42-58 T09:42:391.2.840.020477.1.72.3.15| 1.2.840.523314.1.13.104.2.7.2.7278 [id number] [facility] 2023-11-16 11:15:00 bMJS2I2Ka21nGRK5PkSN id4srzg58EUvhe xpzeIvw5/q9Sn+P1xK3tUkiEM1u53S7043 -02-27T11:15:00 ROUTINE VISIT11/16/2023 11:26 AMSUBJECTIVEAnddea Healy is a 33 year old at 30w1d who presents for routine visit. She has complaints today: loss of fluid, vaginal bleeding, and signs or symptoms of pre-eclampsia. Good movement. Occasional contractions.Patient complaining of thick white vaginal discharge for 1 week. Denies odor or irritation.OBJECTIVEBP 92/47 (BP Location: Left arm, Patient Position: Sitting, BP CUFF SIZE: Adult Medium) | Pulse 88 | Ht 5' (1.524 m) | Wt 142 lb (64.4 kg) | LMP 04/19/2023 (Exact Date) | BMI 27.73 kg/m?Physical Exam:Gen: A&Ox3, NADAbd: Soft, gravid, NTTP, ND, no rebound or guardingExt: No calf tendernessGU: Some white discharge, cervix appears closed/longASSESSMENT:Juni Healy is a 33 year old at 30w1d who presents for routine visit.Patient Active Problem ListDiagnosisHigh-risk in third trimesterASCUS (atypical squamous cells of undetermined significance) on Pap smearBack pain complicating , third trimesterPrevious section complicating pregnancyCervical high risk human papillomavirus (HPV) DNA test positivePLAN1. 30 weeks gestation of - POCT Urinalysis w/o Specific Gravity2. Vaginal discharge during in third trimester- Gc & Chlamydia Amplified Assay; Future- Gal[facility] Only - Vaginal Pathogens by Nucleic Acid Testing; Future- Gc & Chlamydia Amplified Assay- [facility] Only - Vaginal Pathogens by Nucleic Acid Testing--Will contact with results, no obvious infection noted3. High-risk in third trimester4. Previous section complicating --[facility] 01/17--Reviewed with patient FAC-- labor warnings reviewed--All questions answered 71072-1Fkbjoagy flnvND4855-84-95F00:29:15Progress noteTXT1.2.840.265805.1.13.104.2.7 .2.643541|[id number] for patient qchs20639-6HjgbXBHXEHZOBPQUphjlsln d C-CDA narrative textUTMBCHRISTUS ST. [facility] - [address] Zo[id number] 05FZGHXDQPUOTZVDUJFBAUCR4668-21-27 T11:29:151.2.840.292290.1.72.3.15| 1.2.840.676401.1.13.104.2.7.2.7278 [id number] [facility] 2023-11-04 08:00:00 BIkozUVXiJO2cdb6t8mo xEZF1Mil/Dezgr ZqLYtGRLWybY+wTFnYmESgZPVymg5f6743 T08:00:00 ROUTINE VISIT11/04/2023 8:25 AMSUBJECTIVEAnddea Healy is a 33 year old at 28w3d who presents for routine visit. She has no complaints today: loss of fluid, vaginal bleeding, and signs or symptoms of pre-eclampsia. Good movement. Occasional contractions.OBJECTIVEBP 97/60 (BP Location: Right arm, Patient Position: Sitting, BP CUFF SIZE: Adult Medium) | Pulse 82 | Temp 36.7 ?C (98.1 ?F) (Oral) | Resp 16 | Ht 5' (1.524 m) | Wt 139 lb 1.6 oz (63.1 kg) | LMP 04/19/2023 (Exact Date) | BMI 27.17 kg/m?Physical Exam:Gen: A&Ox3, NADAbd: Soft, gravid, NTTP, ND, no rebound or guardingExt: No calf tendernessGU: deferredASSESSMENT:Juni Healy is a 33 year old at 28w3d who presents for routine visit.Patient Active Problem ListDiagnosisHigh-risk in second trimesterASCUS (atypical squamous cells of undetermined significance) on Pap smearBack pain complicating , third trimesterPrevious section complicating pregnancyCervical high risk human papillomavirus (HPV) DNA test pdesltak23 weeks gestation of pregnancyPLAN1. 28 weeks gestation of - POCT Urinalysis w/o Specific [place]- TDAP VACCINE, >10 YRS, IM2. Need for vaccination- TDAP VACCINE, >10 YRS, IM3. Previous section complicating pregnancyScheduled for [facility] . High-risk in third trimester--Reviewed 3rd trimester labs--Reviewed with patient FAC-- labor warnings reviewed--All questions answered 13947-2Zobmaxls qcgoUA4741-44-03F90:26:49Progress noteTXT1.2.840.839218.1.13.104.2.7 .2.958684|[id number] for patient riws86235-3XonlGVEUKUAPXMCYrgptqyy d C-CDA narrative text[id number] 83DMWGZWRGQMQFWHCQAFOSID0685-27-93 T08:26:491.2.840.358334.1.72.3.15| 1.2.840.962267.1.13.104.2.7.2.7278 [id number] [facility] 2023-10-28 10:03:12 Tgj49qNRU9rTsFO0utKk gaQ0P8x/HdGsyr ZQwi3LuInPw4fiNU8jIuMkLGrKpMIa9126 -02-08T10:03:12 Recieved fax from [employer]. Signed and faxed back.Title 19- Backbrace and stocking.NELY HENLEY RN 10/28/2023 10:08 AM 88235-4Vgbyywdrf encounter OxbzVQ5410-21-68P81:08:37Telephone encounter NoteTXT1.2.840.887443.1.13.104.2.7 .2.499373|[id number] for patient vmla42692-1RvxlBPEUZDFJKPFSssntqmt d C-CDA narrative htkm674508670AjmnxhpksNely Henley RN[id number] 56RLFVOFBCEHJLGTKQMWXBIS8529-75-28 T10:08:371.2.840.882140.1.72.3.15| 1.2.840.274730.1.13.104.2.7.2.7278 [id number] Nely Henley RN [facility] 2023-10-26 16:56:04 8spwdMdYd/IP6GgmvzxP 3wxbZT/87QMVlV Ft416OIJGWSIbk8tUkofjMkDgktBmm4887 -02-06T16:56:04 Fax received from [employer] requesting an order for an electric breast pump, compression stockings, and maternity compression support. Forms signed and faxed back. Will scan and upload form to [facility]. 14151-4Faxfcuyrv encounter YeadGV7725-70-36S94:57:52Telephone encounter NoteTXT1.2.840.347870.1.13.104.2.7 .2.439765|[id number] for patient zuus71771-2UimtOZGAUAREJHPEcjrrsqm d C-CDA narrative text[address] YatxYr[id number] 33UMCUMCJDLTJBVZTYWGYVCR0704-73-62 T16:57:521.2.840.842565.1.72.3.15| 1.2.840.835210.1.13.104.2.7.2.7278 [id number] [facility] 2023-10-26 07:45:00 FjXse5E+wBlXb2G0k09H k0nCFdKeUPLcNQ fGlT6Xca7Ag6XZdLgcaEuHPtTYR71f9821 -02-06T07:45:00 Loaded pt w 50gm fruit punch glucola, no issues.Draw time: 08:49 16469-9Ikdok HcbbPP2637-45-64L80:49:20Nurse NoteTXT1.2.840.624899.1.13.104.2.7 .2.694730|[id number] for patient vouk63053-2Ynevf NoteLNNARRATIVEFormatted C-CDA narrative textUT[address] Ez[id number] 22XPGHPAAETMVRGYBVJUUESO3491-29-91 T07:49:201.2.840.066731.1.72.3.15| 1.2.840.459138.1.13.104.2.7.2.7278 79_[id number] [facility] 2023-10-26 07:45:00 k4ry2vp2EwSK7sqEFGuq ZJXyseOe1Dg9n8 lWmP741/6HvmNj8+og4WLmEOV9orpn2507 -02-06T07:45:00 Images from the original note were not included.Venipuncture collection performed by clean technique on the left anticubitus. Total of 1 attempts were made. Slight pressure and a bandage/dressing were applied to the site(s). The patient experienced no complications. The following specimens were processed according to instructions and sent to [facility] laboratories per lab order on 10/26/2023:LT BLUESST 2RED 1LAV 2PPTDK GREEN (LiHep)DK GREEN (SodH)GRAYDK BLUE (K2)DK BLUE (S)ACDBlood CultureNIPT/NTDPatient has been identified by and was provided with cup, antiseptic towelette, and clean catch instructions. 2 urine specimen(s) sent.Unpreserved 1Urine Culture 1Aptima tubeOther urine 40027-2Nggjh XtikMC7724-98-12H57:58:44Nurse NoteTXT1.2.840.739268.1.13.104.2.7 .2.130574|[id number] for patient ekvw62082-2Lrppk NoteLNNARRATIVEFormatted C-CDA narrative text[id number] 92SHPYKHGZQZPMBMTERMRRMA9063-20-96 T08:58:441.2.840.828842.1.72.3.15| 1.2.840.233365.1.13.104.2.7.2.7278 79_[id number] [facility] 2023-10-26 07:45:00 B6ZhErq8LJGCjOV2lPRG prmJHfTtfrXz79 dVEmlUYwbDh9zPQ34pMbiES1hZX4Nl2425 -02-06T07:45:00 Improved anemia. Continue with prenatals and iron as it is working. 19934-5Qpyavfcl xeiqBZ9999-37-34Y74:10:03Progress noteTXT1.2.840.429252.1.13.104.2.7 .2.316898|[id number] for patient xbpt79595-7VvilVLXIFNSFQDDIydllzcp d C-CDA narrative [id number] 77NQTQPILZFDSOQRWDAXKSWD7035-15-79 T14:10:031.2.840.481121.1.72.3.15| 1.2.840.225141.1.13.104.2.7.2.7278 79_[id number] [facility] 2023-10-21 11:56:37 JnNFN7HdNE01XS6CZHYK aRyXRYIsprtNYP Ig3l7KTkSLmAoY6PHzVwcLEVEicfjb5067 -02-01T11:56:[address] Renita Alvarez to move from 01/17/2024 to 01/18/2024 and to change the start time to begin at 0700. Message sent to CLINT Brown for assistance. Voicemail left for patient informing her that Dr. Marie approved the change and to give us a call if she has any other questions or concerns. 05556-2Hwfddxngg encounter VvxpLO3417-87-04N78:59:25Telephone encounter NoteTXT1.2.840.791545.1.13.104.2.7 .2.724494|[id number] for patient yaua40029-3YsnvSIXTZYTRIPJQimokqgy d C-CDA narrative [id number] 62WJBACEJNFVEZLAIXLCIPTK8674-76-38 T11:59:251.2.840.666993.1.72.3.15| 1.2.840.810556.1.13.104.2.7.2.7278 79_[id number] [facility] 2023-10-21 11:15:16 RoFhcuU1qGhdoaz0drBR 9YabG5o7zmpFu6 XQyiVk7fTV5B9ieyUxcPFAAkMWzFrd1640 -02-01T11:15:16 Please route to correct pool 77823-5Qojxjhyfl encounter NokuKU9028-83-90Y73:15:24Telephone encounter NoteTXT1.2.840.755113.1.13.104.2.7 .2.267386|[id number] for patient aqtd44683-7RzuzEKDNGUXNGNXSutzfvch d C-CDA narrative scdz110190052Ljufbj N Davis MAUT[id number] 65RCDSQWNOIAHRISLBNENBKE2478-11-87 T11:15:241.2.840.621346.1.72.3.15| 1.2.840.504862.1.13.104.2.7.2.7278 79_[id number] Ernestine Mayer MA [facility] 2023-10-21 11:02:26 WLQtCZR3EOI6cKkJxuX+ jmVOWhJ8z4YKoe PjRxZLEsmMGlhK5tKUx6STb0luvLNN6197 -02-01T11:02:26 Patient would like to switch her c section date to 01/17 instead of 01/16. 43169-7Kddhfurmz encounter WrsvZJ8972-94-32X38:03:11Telephone encounter NoteTXT1.2.840.757516.1.13.104.2.7 .2.137046|[id number] for patient plka61849-6QoxzEKRZCOZKXVJJpfunvnb d C-CDA narrative cndz12368281Ualiu S Hernandez[address] HmqnS[id number] 15CGFNMIYFYWOAOEOJGTBPTD2466-82-51 T11:03:111.2.840.026005.1.72.3.15| 1.2.840.731550.1.13.104.2.7.2.7278 79_[id number] Lashell Oglesby [facility] 2023-10-21 10:30:00 oliZMbNGM7lELDPX1iFz HBFkFP/Pw2IyOQ ZT1oucX0MTS8v7ue5ceGcDqkbgROgn6396 -02-01T10:30:00 ROUTINE VISIT10/21/2023 10:47 AMSUBJECTIVEAnddea Healy is a 33 year old at 26w3d who presents for routine visit. She has an episode of dizziness after standing complaints today; denies contractions, loss of fluid, vaginal bleeding, and signs or symptoms of pre-eclampsia. Good movement.OBJECTIVEBP 100/64 | Pulse 76 | Resp 18 | Ht 5' (1.524 m) | Wt 138 lb (62.6 kg) | LMP 04/19/2023 (Exact Date) | BMI 26.95 kg/m?Physical Exam:Gen: A&Ox3, NADPulm: No labored breathingAbd: Soft, gravid, NTTP, ND, no rebound or guardingExt: No calf tendernessGU: deferredASSESSMENT:Juni Healy is a 33 year old at 26w3d who presents for routine visit.Patient Active Problem ListDiagnosisHigh-risk in second trimesterASCUS (atypical squamous cells of undetermined significance) on Pap smearBack pain complicating , third trimesterPrevious section complicating pregnancyCervical high risk human papillomavirus (HPV) DNA test positivePLAN1. 26 weeks gestation of - POCT Urinalysis w/o Specific [place]- ADC or [place] Only - Rpr; Future- Glucose 1 Hour Post Prandial; Future- HIV 1/2 Ag-Ab with Reflex; Future- Workup, Blood Bank; Future- Cbc with Diff; Future- CASE REQUEST: SECTION; Standing- CASE REQUEST: SECTION2. High-risk in second trimester--dizziness likely related to postural hypotension3. Previous section complicating --RCS only desired, set f or 01/17/24.- CASE REQUEST: SECTION; Standing- CASE REQUEST: SECTION--Discussed with patient plan for 3rd trimester lab testing--All questions answered 86190-0Zsjkpbro fbjvRY8708-75-08V02:48:35Progress noteTXT1.2.840.021652.1.13.104.2.7 .2.338082|[id number] for patient scqo12119-0QjupWCZESTBNFASYpnmvzsk d C-CDA narrative textUTARTESIA GENERAL [facility] - [address] Cj[id number] 54QLFFTOVATADSDUHHLYRNWO6855-55-44 T10:48:351.2.840.346481.1.72.3.15| 1.2.840.185280.1.13.104.2.7.2.7278 [id number] [facility] 2023-09-21 10:45:00 d1NkBtCzdoEy1oCJORse LT3h9VPVa6EJRi tCUZ6aRpTnOJpVMOlJK4V/qmqXzUxV7998 -01-02T10:45:00 ROUTINE VISIT09/21/2023 10:51 AMSUBJECTIVEJuni Healy is a 33 year old at 22w1d who presents for routine visit. She has no complaints today; denies contractions, loss of fluid, vaginal bleeding, and signs or symptoms of pre-eclampsia. Good movement.OBJECTIVEBP 91/59 (BP Location: Left arm, Patient Position: Sitting, BP CUFF SIZE: Adult Medium) | Pulse 78 | Temp 36.7 ?C (98.1 ?F) | Resp 18 | Ht 5' (1.524 m) | Wt 135 lb (61.2 kg) | LMP 04/19/2023 (Exact Date) | BMI 26.37 kg/m?Physical Exam:Gen: A&Ox3, NADPulm: No labored breathingAbd: Soft, gravid, NTTP, ND, no rebound or guardingExt: No calf tendernessGU: deferredASSESSMENT:Juni Healy is a 33 year old at 22w1d who presents for routine visit.Patient Active Problem ListDiagnosisHigh-risk in second trimesterASCUS (atypical squamous cells of undetermined significance) on Pap smearBack pain complicating , third trimesterPrevious section complicating pregnancyCervical high risk human papillomavirus (HPV) DNA test positivePLAN1. 22 weeks gestation of - POCT Urinalysis w/o Specific Gravity2. High-risk in second trimester3. Previous section complicating pregnancyPrev CS x24. Cervical high risk human papillomavirus (HPV) DNA test positive--plan repeat pap?HPV pp since pap normal--Anatomy US reviewed normal 12/21.--normal genetic testing--Discussed with patient plan for 3rd trimester lab testing--All questions answered 15941-8Dnenrqfq jezsCV0162-64-71L36:52:18Progress noteTXT1.2.840.691428.1.13.104.2.7 .2.294620|[id number] for patient oiwr25046-9VvttUHNRTFVCAXHApbxbznc d -A narrative Zazzy[id number] 96SMRZRMKPKWTFLGBCQCAAKG4163-49-82 T10:52:181.2.840.652639.1.72.3.15| 1.2.840.734269.1.13.104.2.7.2.7278 79_[id number] [facility] 2023-09-09 09:00:00 zEmcEWkcmZClsSHMgwAo Nvp5kxNJzvWymv ieA8UsFkc6bqkHVhFviHf7MO+GHMkS5186 -12-21T09:00:00 Reviewed recent ultrasound results, show: Normal anatomy with posterior placenta, no concern for PAD. 41659-8Jxngxhaz shtiSR9032-25-79H60:20:29Progress noteTXT1.2.840.519316.1.13.104.2.7 .2.652179|[id number] for patient appd49201-6PkhoRISKQFLJSUBKritzfct d C-CDA narrative Zazzy[id number] 42TJTMAQZDTAFZZVXVNPMBRB7668-04-22 T11:20:291.2.840.688403.1.72.3.15| 1.2.840.867822.1.13.104.2.7.2.7278 [id number] [facility]"
--- NOTE | 2023-12-23 13:47 | ER ---
Nurse's Notes [facility] Name: Juni Healy Age: 33 yrs Sex: Female : 1990 Arrival Date: 12/23/2023 Time: 13:00 Bed 1 Private MD: Diagnosis: related conditions, unspecified, third trimester Presentation: 12/22 13:10 Chief complaint: Spotty vaginal bleeding and abdominal cramping x 2 days. Pt is 35 hb weeks , , BRETT 5/6. Coronavirus screen: At this time, the client does not indicate any symptoms associated with coronavirus-19. Ebola Screen: No symptoms or risks identified at this time. Initial Sepsis Screen: Does the patient meet any 2 criteria? No. Patient's initial sepsis screen is negative. Does the patient have a suspected source of infection? No. Patient's initial sepsis screen is negative. Risk Assessment: Do you want to hurt yourself or someone else? Patient reports no desire to harm self or others. Onset of symptoms was December 21, 2023. 13:10 Method Of Arrival: Ambulatory hb 13:10 Acuity: JANE 3 hb Triage Assessment: 13:12 General: Appears in no apparent distress. Behavior is calm, cooperative. Pain: Pain hb currently is 6 out of 10 on a pain scale. Neuro: Level of Consciousness is awake, alert, obeys commands, Oriented to person, place, time, situation. Cardiovascular: Patient's skin is warm and dry. Respiratory: Respiratory effort is even, unlabored, Respiratory pattern is regular, symmetrical. GI: Reports cramping. : Reports vaginal bleeding that is spotty. PROTOTYPE ENGINEER: 13:12 3, Full Term 2, Living 2, LMP 04/19/2023, unknown hb 13:20 3, Full Term 2, Living 2, Verified cp Historical: - Allergies: 13:12 No Known Allergies; hb - Home Meds: 13:12 None [Active]; hb - PMHx: 13:12 Anxiety; Cholecystitis; Depression; hb - PSHx: 13:12 section; Cholecystectomy; hb - Immunization history:: Adult Immunizations up to date. - Infectious Disease History:: Denies. - Social history:: Smoking status: Patient denies any tobacco usage or history of. Screenin:[facility] Fall Risk Assessment (Adult) History of falling in the last 3 months, kc6 including since admission No falls in past 3 months (0 pts) Confusion or Disorientation No (0 pts) Intoxicated or Sedated No (0 pts) Impaired Gait No (0 pts) Mobility Assist Device Used No (0 pt) Altered Elimination No (0 pt) Score/Fall Risk Level 0 - 2 = Low Risk. Abuse screen: Denies threats or abuse. Denies injuries from another. Nutritional screening: No deficits noted. Tuberculosis screening: No symptoms or risk factors identified. Assessment: 13:50 General: Appears in no apparent distress. comfortable, well groomed, well developed, kc6 Behavior is calm, cooperative, appropriate for age. Pain: Complains of pain in suprapubic area Quality of pain is described as crampy, dull. Neuro: Level of Consciousness is awake, alert, obeys commands, Oriented to person, place, time, situation, Appropriate for age. Cardiovascular: Capillary refill < 3 seconds. Respiratory: Airway is patent Trachea midline Respiratory effort is even, unlabored, Respiratory pattern is regular, symmetrical. GI: No signs and/or symptoms were reported involving the gastrointestinal system. Bowel sounds present X 4 quads. Abd is soft and non tender X 4 quads. : Reports vaginal bleeding that is bright red, spotty, since this AM. EENT: No signs and/or symptoms were reported regarding the EENT system. Derm: No signs and/or symptoms reported regarding the dermatologic system. Skin is intact, is healthy with good turgor, Skin is pink, warm \T\ dry. Musculoskeletal: No signs and/or symptoms reported regarding the musculoskeletal system. Circulation, motion, and sensation intact. Capillary refill < 3 seconds, Range of motion: intact in all extremities. 14:33 Reassessment: Patient appears in no apparent distress at this time. No changes from kc6 previously documented assessment. Patient and/or family updated on plan of care and expected duration. Pain level reassessed. Patient is alert, oriented x 3, equal unlabored respirations, skin warm/dry/pink. Vital Signs: 13:10 BP 97 / 74; Pulse 72; Resp 16; Temp 97.5(O); Pulse Ox 100% on R/A; Weight 65.77 kg; hb Height 5 ft. 0 in. ; Pain 6/10; 14:42 BP 100 / 80; Pulse 75; Resp 16 S; Pulse Ox 98% on R/A; kc6 13:10 Body Mass Index 28.32 (65.77 kg, 152.4 cm) hb 13:10 Pain Scale: Adult hb ED Course: 13:03 Patient arrived in ED. mg5 13:12 Lasha Moseley PA is PHCP. cp 13:12 Hugh Loza MD is Attending Physician. cp 13:12 Triage completed. hb 13:12 Arm band placed on. hb 13:31 Yasmin Agarwal, RN is Primary Nurse. kc6 13:34 initiated a transfer with Isi from the [facility] Transfer center. eb 13:42 connected the L\T\D doctor class a regional truck driver for [facility] with Lasha GODDARD for patient transfer eb consultation. 13:44 administrative approval given by Isi Santos Rn/ patient has been accepted to [facility] L\T\D triage / Dr. Riley has accepted the patient in transfer/ report to be called to [phone]. 13:50 Patient has correct armband on for positive identification. Placed in gown. Bed in low kc6 position. Call light in reach. Side rails up X 1. Client placed on continuous cardiac and pulse oximetry monitoring. NIBP monitoring applied. Door closed. Noise minimized. Lights dimmed. Warm blanket given. 13:50 Inserted saline lock: 20 gauge in right antecubital area, using aseptic technique. kc6 Blood collected. 14:12 US OB Limited In Process Unspecified. EDMS 14:12 TRANSVAG OB CERVIX ASSESSMENT In Process Unspecified. EDMS 14:47 Provided Education on: need for transfer . as6 14:47 No provider procedures requiring assistance completed. Patient transferred, IV remains as6 in place. Administered Medications: 14:17 Drug: NS 0.9% IV 1000 ml IV at 100 ml/hr continuous Route: IV; Rate: 100 ml/hr; Site: kc6 right wrist; 14:42 Follow up: Response: No adverse reaction; IV Status: Completed infusion; IV Intake: kc6 1000ml 14:39 Drug: Acetaminophen PO 1000 mg PO once Route: PO; kc6 14:42 Follow up: Response: No adverse reaction kc6 Medication: 14:47 VIS not applicable for this client. as6 Intake: 14:42 IV: 1000ml; Total: 1000ml. kc6 Outcome: 13:47 ER care complete, transfer ordered by MD. [place] 14:47 Transferred by ground EMS to [facility], Transfer form as6 completed. 14:47 Condition: stable 14:47 Instructed on the need for transfer, 14:48 Patient left the ED. as6 Signatures: Dispatcher [employer] EDMS Lasha Moseley PA PA cp Baxter, Heather, RN RN Nely Mcdonald Ashby, RN RN as6 Yasmin Agarwal RN RN lori6 Carina Sauceda mg5
--- NOTE | 2023-12-23 13:47 | EDPHYS ---
Physician Documentation [facility] Name: Juni Healy Age: 33 yrs Sex: Female : 1990 Arrival Date: 12/23/2023 Time: 13:00 Bed 1 Private MD: ED Physician Hugh Loza HPI: 12/22 13:20 This 33 yrs old Female presents to ER via Ambulatory with complaints of cp [id number], Abdominal Cramping, Vaginal Bleeding. 13:20 The patient presents to the emergency department with abdominal pain, of the lower cp abdomen, that started 2 day(s) ago, described as crampy, vaginal bleeding, described as spotting. The estimated gestational age is 35 weeks. 13:20 course: care: private OB physician. Associated signs and symptoms: cp Pertinent negatives: dysuria, fever, nausea, vomiting. 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 - Infectious Disease History:: Denies. - Social history:: Smoking status: Patient denies any tobacco usage or history of. ROS: 13:25 Abdomen/GI: Positive for abdominal cramps, cp 13:25 : Positive for vaginal bleeding, cp 13:25 Eyes: Negative for injury, pain, redness, and discharge, cp 13:25 Constitutional: Negative for body aches, chills, fever, poor PO intake, 13:25 ENT: Negative for drainage from ear(s), ear pain, sore throat, 13:25 Respiratory: Negative for cough, shortness of breath, wheezing, 13:25 Back: Negative for pain at rest, pain with movement, 13:25 Neuro: Negative for altered mental status, dizziness, headache, weakness, 13:25 All other systems are negative, Exam: 13:30 Constitutional: The patient appears in no acute distress, alert, awake, non-toxic, well cp developed, well nourished, 13:30 Head/Face: Normocephalic, atraumatic. cp 13:30 Eyes: Periorbital structures: appear normal, Conjunctiva: normal, no exudate, no injection, Sclera: no appreciated abnormality, Lids and lashes: appear normal, bilaterally, 13:30 ENT: External ear(s): are unremarkable, Nose: is normal, Mouth: Lips: moist, Oral mucosa: pink and intact, moist, Posterior pharynx: is normal, airway is patent, no erythema, no exudate, 13:30 Chest/axilla: Inspection: normal, 13:30 Cardiovascular: Rate: normal, Rhythm: regular, 13:30 Respiratory: the patient does not display signs of respiratory distress, Respirations: normal, no use of accessory muscles, no retractions, labored breathing, is not present, Breath sounds: are clear throughout, no decreased breath sounds, no stridor, no wheezing, 13:30 Abdomen/GI: Inspection: gravid appearance, is noted, Bowel sounds: active, all quadrants, Palpation: soft, in all quadrants, mild abdominal tenderness, in the right lower quadrant, rebound tenderness, is not appreciated, involuntary guarding, is not appreciated, 13:30 Back: CVA tenderness, is absent, 13:30 Neuro: Orientation: to person, place \T\ time. Motor: moves all fours, strength is normal, Gait: is steady, at a normal pace, without difficulty, Vital Signs: 13:10 BP 97 / 74; Pulse 72; Resp 16; Temp 97.5(O); Pulse Ox 100% on R/A; Weight 65.77 kg; hb Height 5 ft. 0 in. ; Pain 6/10; 14:42 BP 100 / 80; Pulse 75; Resp 16 S; Pulse Ox 98% on R/A; kc6 13:10 Body Mass Index 28.32 (65.77 kg, 152.4 cm) hb 13:10 Pain Scale: Adult hb MDM: 13:16 Patient medically screened. cp 13:30 Differential diagnosis: [place], delivery of infant, pre-term labor. cp 14:15 Management of patient was discussed with the following: Information Systems Professor: DR Riley, OB with cp DARIAN Eaton, will accept patient as transfer. 15:50 Data reviewed: vital signs, nurses notes, lab test result(s), radiologic studies, cp ultrasound, I have discussed the patient's presentation/case with the attending Emergency Department Physician; and as a result, I will transfer patient. 12/22 13:17 Order name: Abo/rh Typing; Complete Time: 15:45 cp 12/22 13:17 Order name: Basic Metabolic Panel; Complete Time: 15:45 cp 12/22 15:46 Interpretation: Normal except: CL 110; GLUC 69; CRE 0.53; CA 8.1. cp 12/22 13:17 Order name: CBC with Diff; Complete Time: 15:45 cp 12/22 15:46 Interpretation: Normal except: RBC 3.41; HGB 10.0; HCT 28.7. cp 12/22 13:17 Order name: Test, Urine; Complete Time: 14:22 cp 12/22 15:47 Interpretation: Reviewed. cp 12/22 13:17 Order name: Quantitative Hcg; Complete Time: 15:45 cp 12/22 15:46 Interpretation: Reviewed. 12/22 13:17 Order name: Urinalysis w/ reflexes; Complete Time: 14:22 cp 12/22 13:17 Order name: US OB Limited; Complete Time: 15:45 cp 12/22 13:49 Order name: TRANSVAG OB CERVIX ASSESSMENT EDAR 12/22 13:17 Order name: IV Saline Lock; Complete Time: 13:49 cp 12/22 13:17 Order name: Labs collected and sent; Complete Time: 13:49 cp 12/22 13:17 Order name: NPO; Complete Time: 13:29 cp 12/22 13:33 Order name: FHT's; Complete Time: 14:17 cp Administered Medications: 14:17 Drug: NS 0.9% IV 1000 ml IV at 100 ml/hr continuous Route: IV; Rate: 100 ml/hr; Site: kc6 right wrist; 14:42 Follow up: Response: No adverse reaction; IV Status: Completed infusion; IV Intake: kc6 1000ml 14:39 Drug: Acetaminophen PO 1000 mg PO once Route: PO; kc6 14:42 Follow up: Response: No adverse reaction kc6 Disposition: 16:46 Co-signature as Attending Physician, Hugh Loza MD I reviewed the patient's care rn provided by the Advanced Practice Provider and agree with the diagnosis and treatment plan. Disposition Summary: 12/23/23 13:47 Transfer Ordered Notes: Transfer Location: [facility] cp Reason: Higher level of care cp Condition: Stable cp Problem: new cp Symptoms: are unchanged cp Accepting Physician: DR Riley(12/23/23 14:48) as6 Diagnosis - related conditions, unspecified, third trimester cp Forms: - Medication Reconciliation Form cp - SBAR form cp Signatures: Dispatcher [employer] EDMS Hugh Loza MD MD rn Page, Corey, PA PA cp Tere Cash RN RN Elliot Kendall RN RN as6 Yasmin Agarwal RN RN kc6 Corrections: (The following items were deleted from the chart) 13:17 13:17 ABO/RH TYPING+BB.LAB.BRZ ordered. EDMS EDMS 13:17 13:17 BASIC METABOLIC PANEL+C.LAB.BRZ ordered. EDMS EDMS 13:17 13:17 CBC+H.LAB.BRZ ordered. EDMS EDMS 13:17 13:17 Test, Urine+UC.LAB.BRZ ordered. EDMS EDMS 13:17 13:17 QUANTITATIVE HCG+C.LAB.BRZ ordered. EDMS EDMS 13:17 13:17 Urinalysis+U.LAB.BRZ ordered. EDMS EDMS 14:48 13:47 DR Riley cp as6
[2023-12-23] MEDS ORDERED: NA CHLORIDE 0.9% 1,000 ML ONE (13:53)
[2023-12-23 13:59] LABS: Absolute Basophils 0.1 K/uL (0-0.5); Absolute Eosinophils 0.3 K/uL (0-0.5); Absolute Lymphocytes (CBC) 2.3 K/uL (0.7-4.9); Absolute Monocytes 0.7 K/uL (0.1-1.3); Absolute Neutrophil 3.5 K/uL (1.8-8.0); Eosinophils % 3.8 % (0-4.4); Hematocrit 28.7 % (36.0-45.0); Lymphocytes % 33.5 % (15.3-44.8); MCH 29.4 pg (27.0-35.0); MPV 8.7 fL (7.6-11.3); Monocytes % 9.9 % (3.3-12.3); Neutrophils % 51.8 % (41.7-73.7); Nucleated Red Blood Cells % 0.1 % (0-0); Platelets 263 thou/uL (152-406); RBC Red Blood Cell Count 3.41 M/uL (3.86-4.86); Red Cell Distribution Width 12.1 % (12.1-15.2)
[2023-12-23 14:11] LABS: Specific Gravity < 1.005 (1.005-1.030); Sqamous Epithelial <5 /HPF (None Seen); Urine Bacteria <20 /HPF (<20); Urine Bilirubin NEGATIVE (Negative); Urine Blood Negative (Negative); Urine Clarity Turbid (Clear); Urine Color Colorless (Yellow); Urine Culture Reflex Order NOT NEEDED; Urine Glucose NEGATIVE (Negative); Urine Ketones NEGATIVE (Negative); Urine Microscopic Reflex YN ORDER UMIC; Urine Nitrite NEGATIVE (Negative); Urine Protein NEGATIVE (Negative); Urine RBC <5 /HPF (None Seen); Urine Urobilinogen Normal (Normal); Urine WBC <5 /HPF (<5); Urine pH 6.5 (5.0-7.0)
[2023-12-23 14:12] LABS: Specific Gravity < 1.005 (1.005-1.030)
[2023-12-23 14:30] LABS: Anion Gap 6.7 mEq/L (5.0-15.0); Potassium 3.7 mEq/L (3.5-5.1)
[2023-12-23] MEDS ORDERED: ACETAMINOPHEN 500 MG TAB ONE (14:36)
--- NOTE | 2023-12-23 14:53 | RAD REPORT ---
EXAM DESCRIPTION: US - OB Limited - 12/23/2023 2:10 pm CLINICAL HISTORY: ABD PAIN , vaginal bleeding COMPARISON: OBSTETRICAL COMPLETE dated 06/04/2014; TRANSVAG OB CERVIX ASSESSMENT dated 12/23/2023 FINDINGS: Limited obstetric ultrasound and transvaginal cervix assessment was requested by the emerg ency room. A single live cephalic positioned fetus is noted. Heart rate 145 BPM, normal. Estimated age of 34 weeks 5 days noted, BRETT 01/24/2024. Amniotic fluid volume is within normal limits with TOYA of 9.4 cm, largest pocket 3.1 cm. Fundal placenta noted without abruption. Transvaginal ultrasound of the cervix was also performed cervix measures 3.6 cm and appears closed.
[2023-12-23 15:42] VITALS: BP 100/80; TEMP 97.5; O2SAT 98
--- NOTE | 2023-12-23 21:05 | RAD REPORT ---
EXAM DESCRIPTION: US - TRANSVAG OB CERVIX ASSESSMENT - 12/23/2023 2:10 pm CLINICAL HISTORY: ABD PAIN , vaginal bleeding COMPARISON: OBSTETRICAL COMPLETE dated 06/04/2014; TRANSVAG OB CERVIX ASSESSMENT dated 12/23/2023 FINDINGS: Limited obstetric ultrasound and transvaginal cervix assessment was requested by the [facility] ency room. A single live cephalic positioned fetus is noted. Heart rate 145 BPM, normal. Estimated age of 34 weeks 5 days noted, BRETT 01/24/2024. Amniotic fluid volume is within normal limits with TOYA of 9.4 cm, largest pocket 3.1 cm. Fundal placenta noted without abruption. Transvaginal ultrasound of the cervix was also performed cervix measures 3.6 cm and appears closed.
== END 2023-12-23 14:48 | disposition short-term general hospital (02) ==
LOC: ER 13:00
DX: O26.853 Spotting complicating pregnancy, third trimester (principal); Z3A.35 35 weeks gestation of pregnancy
CPT/HCPCS: 85025; 81001; 80048; 36415; 86900; 81025; 86901; 84702; 76815; 76817; 99285; J7030